=== PATIENT | female | born 1935 | race Caucasian/White ===

== ENCOUNTER 2020-06-27 10:04 | Emergency (ER) | payer MEDICARE, BC ==
[~2020-06-27] VITALS: Ht 154 cm; Wt 90.0 kg
[2020-06-27] MEDS ORDERED: DIAZEPAM 5 MG (VALIUM) TABLET PO ONE (10:15)
[2020-06-27] MEDS ORDERED: ONDANSETRON 4 MG/2 ML (SDV) Z0FRAN IVP ONE (10:15)
[2020-06-27] MEDS ORDERED: NS IV 1000 ML 1,000 ML IV SCH (10:15)
[2020-06-27] MEDS ORDERED: MECLIZINE 25 MG (ANTIVERT) TAB PO ONE (10:15)
[2020-06-27 10:28] LABS: BACTERIA,URINE FEW /HPF; BILIRUBIN,URINE NEGATIVE (NEGATIVE); CLARITY,URINE CLEAR; COLOR,URINE YELLOW; GLUCOSE, URINE (UA) 3+ (NEGATIVE); KETONES,URINE NEGATIVE (NEGATIVE); LEUKOCYTE ESTERASE ,URINE 1+ (NEGATIVE); NITRITE,URINE NEGATIVE (NEGATIVE); PH,URINE 7.5 (5-9); PROTEIN,URINE 3+ (NEGATIVE); SQUAMOUS EPITHELIAL CELL,UR 0-2 /HPF; WBC,URINE 25-50 /HPF
[2020-06-27 10:29] LABS: BASOPHILS % (AUTO) 1 % (0-10); EOSINOPHILS % (AUTO) 3 % (0-10); HEMATOCRIT 37 % (35-52); HEMOGLOBIN 11.3 G/DL (11.5-16.0); LYMPHOCYTES % (AUTO) 27 % (12-44); MEAN CORPUSCULAR HEMOGLOBIN 31 PG (25-34); MEAN CORPUSCULAR HGB CONC 31 G/DL (32-36); MEAN CORPUSCULAR VOLUME 101 FL (80-99); MEAN PLATELET VOLUME 11.7 FL (7.4-10.4); MONOCYTES % (AUTO) 8 % (0-12); NEUTROPHILS % (AUTO) 61 % (42-75); PLATELET COUNT 310 10^3/uL (130-400); WHITE BLOOD COUNT 9.9 10^3/uL (4.3-11.0)
[2020-06-27 10:30] LABS: BASOPHILS # (AUTO) 0.1 10^3/uL (0.0-0.1); EOSINOPHILS # (AUTO) 0.3 10^3/uL (0.0-0.3); LYMPHOCYTES # (AUTO) 2.7 X 10^3 (1.0-4.0); MONOCYTES # (AUTO) 0.8 X 10^3 (0.0-1.0)
--- NOTE | 2020-06-27 10:30 | NUR ---
FLUIDS CONTINUED FROM EMS.
[2020-06-27 10:36] LABS: PROTHROMBIN TIME PATIENT 13.4 SEC (12.2-14.7)
[2020-06-27 10:47] LABS: BUN/CREATININE RATIO 18; CARBON DIOXIDE 23 MMOL/L (21-32); CHLORIDE 103 MMOL/L (98-107); CREATININE SERUM 1.19 MG/DL (0.60-1.30); GFR ESTIMATED 43; GLUCOSE 233 MG/DL (70-105); POTASSIUM 5.3 MMOL/L (3.6-5.0); SODIUM 137 MMOL/L (135-145)
[2020-06-27 10:48] LABS: ALANINE AMINOTRANSFERASE 15 U/L (0-55); ALBUMIN 4.2 GM/DL (3.2-4.5); ALKALINE PHOSPHATASE 85 U/L (40-136); BILIRUBIN,TOTAL 0.8 MG/DL (0.1-1.0); CALCIUM 9.1 MG/DL (8.5-10.1); TOTAL PROTEIN 7.1 GM/DL (6.4-8.2)
--- NOTE | 2020-06-27 10:52 | Diagnostic Imaging Report ---
PROCEDURE: CT head without contrast. TECHNIQUE: Multiple contiguous axial images were obtained through the brain without the use of intravenous contrast. Auto Exposure Controls were utilized during the CT exam to meet ALARA standards for radiation dose reduction. INDICATION: Vertigo Comparison: None available. FINDINGS: Age-appropriate global atrophy is present. No features of large territorial infarct. Periventricular white matter hypoattenuation most compatible with chronic microvascular ischemic disease. No intracranial hyperdense hemorrhage or space-occupying mass. No hydrocephalus or midline shift. Basilar cisterns remain widely patent. No skull fracture. Paranasal sinuses and mastoid air cells are clear. No middle ear fluid. IMPRESSION: 1. No acute intracranial process. 2. No features of mastoiditis or otitis media. Dictated by: Dictated on workstation # [id number]
--- NOTE | 2020-06-27 10:56 | ED General ---
General Chief Complaint: Dizziness/Syncope Stated Complaint: VERTIGO Nursing Triage Note: HX OF VERTIGO IN THE PAST AND REPROTS FEELING DIZZY AND NAUSEATED THIS AM. Nursing Sepsis Screen: No Definite Risk History of Present Illness Date Seen by Provider: Jun 27, 2020 Time Seen by Provider: 10:25 Initial Comments Patient presenting to emergency department for evaluation of a dizziness sensation that she says started earlier this morning. She says she has nausea with it and did have one episode of nonbloody nonbilious emesis. She describes it as a room spinning sensation that is present if she moves her head however if she stays looking forward she does not have any room spinning sensation. She says she has had this before in the past approximately 3 years ago and was diagnosed with vertigo and says that this feels the same as the prior episode but says she has not had it since that time. She denies any pain fevers chills chest pain shortness of breath or diarrhea. Patient is in no obvious distress with normal vital signs. Allergies and Home Medications Allergies Coded Allergies: No Known Drug Allergies (Unverified , 06/27/20) Patient Home Medication List Home Medication List Reviewed: Yes Review of Systems Review of Systems Constitutional: dizziness EENTM: no symptoms reported Respiratory: no symptoms reported Cardiovascular: no symptoms reported Gastrointestinal: nausea, vomiting Genitourinary: no symptoms reported Musculoskeletal: no symptoms reported Skin: no symptoms reported Psychiatric/Neurological: No Symptoms Reported All Other Systems Reviewed Negative Unless Noted: Yes Past Qbmokxw-Fldwoh-Mtdpbp Hx Patient Social History Alcohol Use: Denies Use Recreational Drug Use: No Smoking Status: Never a Smoker 2nd Hand Smoke Exposure: No Recent Foreign Travel: No Contact w/Someone Who Travel: No Recent Infectious Disease Expo: No Recent Hopitalizations: No Physical Abuse: No Sexual Abuse: No Mistreated: No Fear: No Seasonal Allergies Seasonal Allergies: No Past Medical History Surgeries: Yes Respiratory: No Cardiac: Yes Atrial Fibrillation, Coronary Artery Disease, High Cholesterol, Hypertension Neurological: No Genitourinary: Yes (OVERACTIVE BLADDER) Gastroesophageal Reflux Musculoskeletal: No Endocrine: Yes Hypothyroidsim, Diabetes, Non-Insulin dep HEENT: No Cancer: No Psychosocial: No Integumentary: No Blood Disorders: Yes (ANEMIC) Physical Exam Vital Signs Vital Signs - First Documented 06/27/20 10:23 Temp 36.0 Pulse 68 Resp 18 B/P (MAP) 158/62 (94) Pulse Ox 97 O2 Delivery Room Air Capillary Refill : Less Than 3 Seconds Height, Weight, BMI Height: '" Weight: lbs. oz. kg; 37.00 BMI Method: General Appearance: No Apparent Distress, WD/WN HEENT: PERRL/EOMI, Other (horizontal nystagmus on leftward gaze) Neck: Supple Respiratory: Normal Breath Sounds, No Respiratory Distress Cardiovascular: Regular Rate, Rhythm Gastrointestinal: Non Tender, Soft Back: Normal Inspection Extremity: Normal Capillary Refill Neurologic/Psychiatric: Alert, Oriented x3, No Motor/Sensory Deficits, slip presser II- XII Norm as Tested, Other (Normal finger to nose and heel to prieto) Skin: Warm/Dry Progress/Results/Core Measures Suspected Sepsis Recent Fever Within 48 Hours: No Infection Criteria Present: None New/Unexplained Altered Menta: No Sepsis Screen: No Definite Risk SIRS Temperature: Pulse: 68 Respiratory Rate: 18 Laboratory Tests 06/27/20 10:10: White Blood Count 9.9 Blood Pressure 158 /62 Mean: 94 Laboratory Tests 06/27/20 10:10: Creatinine 1.19, INR Comment 1.0, Platelet Count 310, Total Bilirubin 0.8 Results/Orders Lab Results Laboratory Tests Test 06/27/20 10:10 Range/Units White Blood Count 9.9 4.3-11.0 10^3/uL Red Blood Count 3.65 L 4.35-5.85 10^6/uL Hemoglobin 11.3 L 11.5-16.0 G/DL Hematocrit 37 35-52 % Mean Corpuscular Volume 101 H 80-99 FL Mean Corpuscular Hemoglobin 31 25-34 PG Mean Corpuscular Hemoglobin Concent 31 L 32-36 G/DL Red Cell Distribution Width 15.4 H 10.0-14.5 % Platelet Count 310 130-400 10^3/uL Mean Platelet Volume 11.7 H 7.4-10.4 FL Immature Granulocyte % (Auto) 1 % Neutrophils (%) (Auto) 61 42-75 % Lymphocytes (%) (Auto) 27 12-44 % Monocytes (%) (Auto) 8 0-12 % Eosinophils (%) (Auto) 3 0-10 % Basophils (%) (Auto) 1 0-10 % Neutrophils # (Auto) 6.0 1.8-7.8 X 10^3 Lymphocytes # (Auto) 2.7 1.0-4.0 X 10^3 Monocytes # (Auto) 0.8 0.0-1.0 X 10^3 Eosinophils # (Auto) 0.3 0.0-0.3 10^3/uL Basophils # (Auto) 0.1 0.0-0.1 10^3/uL Immature Granulocyte # (Auto) 0.1 0.0-0.1 10^3/uL Prothrombin Time 13.4 12.2-14.7 SEC INR Comment 1.0 0.8-1.4 Activated Partial Thromboplast Time 27 24-35 SEC Urine Color YELLOW Urine Clarity CLEAR Urine pH 7.5 5-9 Urine Specific [place] 1.020 1.016-1.022 Urine Protein 3+ H NEGATIVE Urine Glucose (UA) 3+ H NEGATIVE Urine Ketones NEGATIVE NEGATIVE Urine Nitrite NEGATIVE NEGATIVE Urine Bilirubin NEGATIVE NEGATIVE Urine Urobilinogen 0.2 < = 1.0 MG/DL Urine Leukocyte Esterase 1+ H NEGATIVE Urine RBC (Auto) NEGATIVE NEGATIVE Urine RBC NONE /HPF Urine WBC 25-50 H /HPF Urine Squamous Epithelial Cells 0-2 /HPF Urine Crystals NONE /LPF Urine Bacteria FEW H /HPF Urine Casts NONE /LPF Urine Mucus NEGATIVE /LPF Urine Culture Indicated YES Sodium Level 137 135-145 MMOL/L Potassium Level 5.3 H 3.6-5.0 MMOL/L Chloride Level 103 98-107 MMOL/L Carbon Dioxide Level 23 21-32 MMOL/L Anion Gap 11 5-14 MMOL/L Blood Urea Nitrogen 21 H 7-18 MG/DL Creatinine 1.19 0.60-1.30 MG/DL Estimat Glomerular Filtration Rate 43 BUN/Creatinine Ratio 18 Glucose Level 233 H 70-105 MG/DL Calcium Level 9.1 8.5-10.1 MG/DL Corrected Calcium 8.9 8.5-10.1 MG/DL Total Bilirubin 0.8 0.1-1.0 MG/DL Aspartate Amino Transf (AST/SGOT) 19 5-34 U/L Alanine Aminotransferase (ALT/SGPT) 15 0-55 U/L Alkaline Phosphatase 85 40-136 U/L Troponin I < 0.30 <0.30 NG/ML Total Protein 7.1 6.4-8.2 GM/DL Albumin 4.2 3.2-4.5 GM/DL My Orders Orders - SHDA BELL DO Iv/Invasive Line Insertion .IV start (06/27/20 10:12) Ct Head Wo (06/27/20 10:12) Cbc With Automated Diff (06/27/20 10:12) Comprehensive Metabolic Panel (06/27/20 10:12) Ua Culture If Indicated (06/27/20 10:12) Troponin I Fs (06/27/20 10:12) Partial Thromboplastin Time (06/27/20 10:12) Protime With Inr (06/27/20 10:12) Ekg Tracing (06/27/20 10:12) Ondansetron Injection (Zofran Injectio (06/27/20 10:15) Ns Iv 1000 Ml (Sodium Chloride 0.9%) (06/27/20 10:15) Diazepam Tablet (Valium Tablet) (06/27/20 10:15) Meclizine Tablet (Antivert Tablet) (06/27/20 10:15) Urine Culture (06/27/20 10:10) Promethazine Injection (Phenergan Injec (06/27/20 11:30) Diphenhydramine Injection (Benadryl Inje (06/27/20 11:30) Ceftriaxone For Iv Use (Rocephin For I (06/27/20 11:30) Medications Given in ED Current Medications Medications Dose Ordered Sig/Nicole Route Start Time Stop Time Status Last Admin Dose Admin Ceftriaxone Sodium 1000 mg/ Sterile Water 10 ml @ 200 mls/hr ONCE ONCE IV 06/27/20 11:30 06/27/20 11:32 DC 06/27/20 11:30 200 MLS/HR Diazepam 5 mg ONCE ONCE PO 06/27/20 10:15 06/27/20 10:16 DC 06/27/20 10:19 5 MG Diphenhydramine HCl 25 mg ONCE ONCE IVP 06/27/20 11:30 06/27/20 11:31 DC 06/27/20 11:29 25 MG Meclizine HCl 25 mg ONCE ONCE PO 06/27/20 10:15 06/27/20 10:16 DC 06/27/20 10:19 25 MG Ondansetron HCl 4 mg ONCE ONCE IVP 06/27/20 10:15 06/27/20 10:16 DC 06/27/20 10:18 4 MG Promethazine HCl 12.5 mg ONCE ONCE IVP 06/27/20 11:30 06/27/20 11:31 DC 06/27/20 11:30 12.5 MG Vital Signs/I&O 06/27/20 06/27/20 10:23 12:10 Temp 36.0 36.0 Pulse 68 64 Resp 18 16 B/P (MAP) 158/62 (94) 128/76 Pulse Ox 97 100 O2 Delivery Room Air Room Air Capillary Refill : Less Than 3 Seconds Blood Pressure Mean: 94 Progress Note : Progress Note Patient has symptoms most consistent with a peripheral vertigo. I will check labs and head CT treat symptoms with meclizine and Valium and Zofran and reassess. Patient did not feel much better after initial treatment and she does have some abnormal workup and she has trigeminy and I have no old EKG to compare to but she is on a beta clari. I told her that if she is not feeling better and that she may require admission to the hospital for further observation and treatment she said she did not want to be in the hospital. I told I would try additional medications and see if this makes her feel better so I gave her Rocephin for UTI in addition to Phenergan and Benadryl for continued nausea and vertigo. On reassessment patient says that her nausea is gone and her vertigo is almost gone and that she was able to ambulate to the bedside commode and she feels stable and feels couple going home. She says that she lives by herself but that she has several older people in her apartment complex that live close to her and the check on her frequently. I told her if she does not want to be admitted to the hospital we will treat her supportively as an outpatient with when necessary Zofran and meclizine for her symptoms and I will prescribe her Keflex for UTI and I told her follow with her primary care provider within 2-3 days and to come back to the emergency Department sooner with any new worsening pain vomiting neurologic changes with or general concerns. Patient aware and agreeable with plan and verbalized understanding of the above instructions. Departure Impression Primary Impression: Vertigo Additional Impressions: Nausea & vomiting Ventricular trigeminy UTI (urinary tract infection) Disposition: 01 HOME, SELF-CARE Condition: Stable Departure-Patient Inst. Patient Instructions: Vertigo (a Type of Dizziness) (DC) Scripts Cephalexin (Keflex) 500 Mg Capsule 500 MG PO TID, #15 CAP Prov: SHAD BELL DO 06/27/20 Ondansetron (Ondansetron Odt) 4 Mg Tab.rapdis 4 MG PO Q6H PRN for NAUSEA/VOMITING-1ST LINE, #14 TAB Prov: SHAD BELL DO 06/27/20 Meclizine HCl (Meclizine HCl) 25 Mg Tablet 25 MG PO TID PRN for vertigo, #14 TAB Prov: SHAD BELL DO 06/27/20 SHAD BELL DO Jun 27, 2020 10:56
[2020-06-27] MEDS ORDERED: cefTRIAXone FOR IV USE 1,000 MG in WATER (STERILE) FOR INJECTION 10 ML IV ONE (11:30)
[2020-06-27] MEDS ORDERED: PROMETHAZINE INJ 25 MG/ML (PHENERGAN) AMP IVP ONE (11:30)
[2020-06-27] MEDS ORDERED: diphenhydrAMINE 50 MG/ML INJ (BENADRYL) IVP ONE (11:30)
[2020-06-27 12:10] VITALS: BP 128/76
[2020-06-27] MEDS ORDERED: ONDA4TAB11 PO (12:21)
[2020-06-27] MEDS ORDERED: CEPH-507 PO (12:21)
[2020-06-27] MEDS ORDERED: MECL-149 PO (12:21)
== END 2020-06-27 12:35 | disposition home or self-care (01) ==
LOC: EDUNIT# 10:04 → ER FS 10:05
DX: R42 Dizziness and giddiness (principal); R11.2 Nausea with vomiting, unspecified; R00.8 Other abnormalities of heart beat; N39.0 Urinary tract infection, site not specified
CPT/HCPCS: 36415; 70450; 80053; 81000; 84484; 85025; 85610; 85730; 87077; 87088; 93005

== ENCOUNTER 2020-11-17 19:14 | Emergency (ER) | payer BC, MEDICARE ==
[~2020-11-17] VITALS: Ht 149.9 cm; Wt 73.2 kg
[~2020-11-17 19:14] MED LIST: CEPH-507 PO; MECL-149 PO; ONDA4TAB11 PO
--- NOTE | 2020-11-17 19:37 | ED General ---
General Chief Complaint: General Problems/Pain Stated Complaint: ON MEDICAL ADVISE History of Present Illness Date Seen by Provider: Nov 17, 2020 Time Seen by Provider: 19:30 Initial Comments Sent to ER for high potassium (6.8). Drawn today in and she received a call from her doctor advising her to go to the nearest ER. She feels fine, no complaints. Allergies and Home Medications Allergies Coded Allergies: No Known Drug Allergies (Unverified , 06/27/20) Home Medications Cephalexin 500 Mg Capsule, 500 MG PO TID Prescribed by: SHAD BLEL on 06/27/20 1221 Meclizine HCl 25 Mg Tablet, 25 MG PO TID PRN for vertigo Prescribed by: SHAD BELL on 06/27/20 1221 Ondansetron 4 Mg Tab.rapdis, 4 MG PO Q6H PRN for NAUSEA/VOMITING-1ST LINE Prescribed by: SHAD BELL on 06/27/20 1221 Patient Home Medication List Home Medication List Reviewed: Yes Review of Systems Review of Systems Constitutional: no symptoms reported Cardiovascular: no symptoms reported Gastrointestinal: no symptoms reported Past Bltbqss-Wycbkj-Djcdfr Hx Past Med/Social Hx: Reviewed Nursing Past Med/Soc Hx Patient Social History 2nd Hand Smoke Exposure: No Recent Hopitalizations: No Seasonal Allergies Seasonal Allergies: No Past Medical History Surgeries: Yes Respiratory: No Cardiac: Yes Atrial Fibrillation, Coronary Artery Disease, High Cholesterol, Hypertension Neurological: No Genitourinary: Yes (OVERACTIVE BLADDER) Gastroesophageal Reflux Musculoskeletal: No Endocrine: Yes Hypothyroidsim, Diabetes, Non-Insulin dep HEENT: No Cancer: No Psychosocial: No Integumentary: No Blood Disorders: Yes (ANEMIC) Physical Exam Vital Signs Vital Signs - First Documented 11/17/20 19:31 Temp 36.6 Pulse 66 Resp 16 B/P (MAP) 154/47 (82) O2 Delivery Room Air Capillary Refill : Height, Weight, BMI Height: '" Weight: lbs. oz. kg; 37.00 BMI Method: General Appearance: No Apparent Distress, WD/WN Respiratory: Chest Non Tender, Lungs Clear, Normal Breath Sounds, No Accessory Muscle Use, No Respiratory Distress Cardiovascular: Regular Rate, Rhythm, No Edema, No Gallop, No JVD, No Murmur, Normal Peripheral Pulses Gastrointestinal: Normal Bowel Sounds, No Organomegaly, No Pulsatile Mass, Non Tender, Soft Neurologic/Psychiatric: Alert, Oriented x3 Progress/Results/Core Measures Suspected Sepsis SIRS Temperature: Pulse: Respiratory Rate: Laboratory Tests 11/17/20 19:53: White Blood Count 7.9 Blood Pressure / Mean: Laboratory Tests 11/17/20 19:53: Creatinine 1.76H, Platelet Count 301 Results/Orders Lab Results Laboratory Tests Test 11/17/20 19:53 Range/Units White Blood Count 7.9 4.3-11.0 10^3/uL Red Blood Count 3.59 L 4.35-5.85 10^6/uL Hemoglobin 11.0 L 11.5-16.0 G/DL Hematocrit 35 35-52 % Mean Corpuscular Volume 96 80-99 FL Mean Corpuscular Hemoglobin 31 25-34 PG Mean Corpuscular Hemoglobin Concent 32 32-36 G/DL Red Cell Distribution Width 15.0 H 10.0-14.5 % Platelet Count 301 130-400 10^3/uL Mean Platelet Volume 11.5 H 7.4-10.4 FL Immature Granulocyte % (Auto) 0 % Neutrophils (%) (Auto) 53 42-75 % Lymphocytes (%) (Auto) 33 12-44 % Monocytes (%) (Auto) 9 0-12 % Eosinophils (%) (Auto) 4 0-10 % Basophils (%) (Auto) 1 0-10 % Neutrophils # (Auto) 4.2 1.8-7.8 X 10^3 Lymphocytes # (Auto) 2.6 1.0-4.0 X 10^3 Monocytes # (Auto) 0.7 0.0-1.0 X 10^3 Eosinophils # (Auto) 0.3 0.0-0.3 10^3/uL Basophils # (Auto) 0.1 0.0-0.1 10^3/uL Immature Granulocyte # (Auto) 0.0 0.0-0.1 10^3/uL Sodium Level 135 135-145 MMOL/L Potassium Level 5.7 H 3.6-5.0 MMOL/L Chloride Level 103 98-107 MMOL/L Carbon Dioxide Level 21 21-32 MMOL/L Anion Gap 11 5-14 MMOL/L Blood Urea Nitrogen 35 H 7-18 MG/DL Creatinine 1.76 H 0.60-1.30 MG/DL Estimat Glomerular Filtration Rate 27 BUN/Creatinine Ratio 20 Glucose Level 123 H 70-105 MG/DL Calcium Level 9.5 8.5-10.1 MG/DL My Orders Orders - SHELDON ATKINS DO Ed Iv/Invasive Line Start (11/17/20 19:35) Ekg Tracing (11/17/20 19:35) Cbc With Automated Diff (11/17/20 19:35) Basic Metabolic Panel (11/17/20 19:35) Urinalysis (11/17/20 19:35) Vital Signs/I&O 11/17/20 19:31 Temp 36.6 Pulse 66 Resp 16 B/P (MAP) 154/47 (82) O2 Delivery Room Air Capillary Refill : Progress Note : Progress Note Patient well-appearing, asymptomatic, normal vital signs, normal EKG. Labs show ing a potassium of 5.7 (significantly better than the 6.8 she was reported to have earlier today). Patient given handout on hyperkalemia and advised to avoid foods that are high in potassium for the next several days. Advised to call her doctor/PCP tomorrow and to have repeated blood work in a few days as well. Patient agrees and expresses understanding. ECG Initial ECG Impression Date: Nov 17, 2020 Initial ECG Impression Time: 19:40 Initial ECG Rate: 65 Initial ECG Rhythm: Normal Sinus Initial ECG Impression: Normal Initial ECG Comparisson: No Previous ECG Available Departure Impression Primary Impression: Hyperkalemia Additional Impression: Renal insufficiency Disposition: 01 HOME, SELF-CARE Condition: Stable Departure-Patient Inst. Decision time for Depature: 20:34 Referrals: NO,LOCAL PHYSICIAN (PCP/Family) Primary Care Physician Patient Instructions: Hyperkalemia (DC) Add. Discharge Instructions: You have a MILD elevation of your potassium. For now avoid eating the foods listed on your instructions to prevent further elevation of your potassium. Call your doctor tomorrow morning to discuss tonight's lab results. Your potassium level was 5.7 tonight in the ER. ( reported to be 6.8 from lab earlier today) All discharge instructions reviewed with patient and/or family. Voiced understanding. SHELDON ATKINS DO Nov 17, 2020 19:36
[2020-11-17 20:02] LABS: BASOPHILS % (AUTO) 1 % (0-10); EOSINOPHILS % (AUTO) 4 % (0-10); HEMATOCRIT 35 % (35-52); LYMPHOCYTES % (AUTO) 33 % (12-44); MEAN CORPUSCULAR HEMOGLOBIN 31 PG (25-34); MEAN CORPUSCULAR HGB CONC 32 G/DL (32-36); MEAN CORPUSCULAR VOLUME 96 FL (80-99); MEAN PLATELET VOLUME 11.5 FL (7.4-10.4); MONOCYTES % (AUTO) 9 % (0-12); NEUTROPHILS % (AUTO) 53 % (42-75); PLATELET COUNT 301 10^3/uL (130-400); WHITE BLOOD COUNT 7.9 10^3/uL (4.3-11.0)
[2020-11-17 20:03] LABS: BASOPHILS # (AUTO) 0.1 10^3/uL (0.0-0.1); EOSINOPHILS # (AUTO) 0.3 10^3/uL (0.0-0.3); LYMPHOCYTES # (AUTO) 2.6 X 10^3 (1.0-4.0); MONOCYTES # (AUTO) 0.7 X 10^3 (0.0-1.0); NEUTROPHILS # (AUTO) 4.2 X 10^3 (1.8-7.8)
[2020-11-17 20:25] LABS: CREATININE SERUM 1.76 MG/DL (0.60-1.30)
[2020-11-17 20:26] LABS: CALCIUM 9.5 MG/DL (8.5-10.1)
[2020-11-17 20:27] LABS: POTASSIUM 5.7 MMOL/L (3.6-5.0)
[2020-11-17 20:50] VITALS: BP 125/40
== END 2020-11-17 20:50 | disposition home or self-care (01) ==
LOC: EDUNIT# 19:14 → ER FS 19:17
DX: E87.5 Hyperkalemia (principal); N28.9 Disorder of kidney and ureter, unspecified; E11.9 Type 2 diabetes mellitus without complications; I10 Essential (primary) hypertension
CPT/HCPCS: 36415; 80048; 85025; 93005

== ENCOUNTER → 2020-11-19 | Outpatient (CLI) | payer BC, MEDICARE ==
[2020-11-19 11:08] LABS: CALCIUM 9.8 MG/DL (8.5-10.1); CREATININE SERUM 1.53 MG/DL (0.60-1.30); POTASSIUM 6.1 MMOL/L (3.6-5.0)
== END ==
LOC: LAB FS 10:18
DX: E87.5 Hyperkalemia (principal)
CPT/HCPCS: 36415; 80048

== ENCOUNTER 2023-05-10 14:40 | Inpatient (IN) | payer MEDICARE ==
[~2023-05-10] VITALS: Ht 149.9 cm; Wt 70.6 kg
[~2023-05-10 14:40] MED LIST changes: +CYCL5TAB PO; -MECL-149 PO; +MECL-291 PO
--- NOTE | 2023-05-10 14:50 | ED General ---
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 Patient lives at home alone and is normally able to take care of herself. Patient has been feeling unwell for the past few days, and today she was unable to stand or walk on her own without feeling extremely shaky and with generalized weakness. Patient complains of shortness of breath, mild intermittent cough, dysuria and polyuria as well. Denies fever and chills, abdominal pain, diarrhea, palpitations, headache, dizziness. No known sick contacts. Allergies and Home Medications Allergies Coded Allergies: No Known Drug Allergies (Unverified , 06/27/20) Patient Home Medication List Home Medication List Reviewed: Yes Cephalexin (Keflex) 500 Mg Capsule, 500 MG PO TID Prescribed by: SHAD BELL on 06/27/20 1221 Cyclobenzaprine HCl (Cyclobenzaprine HCl) 5 Mg Tablet, 5 MG PO TID PRN for muscle pain Prescribed by: Kortney deng on 02/10/23 2221 Meclizine HCl (Meclizine HCl) 25 Mg Tablet, 25 MG PO TID PRN for vertigo Prescribed by: SHAD BELL on 06/27/20 1221 Ondansetron (Ondansetron Odt) 4 Mg Tab.rapdis, 4 MG PO Q6H PRN for NAUSEA/VOMITING-1ST LINE Prescribed by: SHAD BELL on 06/27/20 1221 Review of Systems Review of Systems Constitutional: see HPI, malaise EENTM: no symptoms reported Respiratory: see HPI, cough, short of breath Cardiovascular: no symptoms reported Gastrointestinal: no symptoms reported Genitourinary: dysuria Musculoskeletal: no symptoms reported Skin: no symptoms reported Psychiatric/Neurological: No Symptoms Reported Hematologic/Lymphatic: No Symptoms Reported Past Oprexkd-Kmtfik-Jkemgs Hx Seasonal Allergies Seasonal Allergies: No Past Medical History Surgeries: Yes (BILAT KNEE REPLACEMENT) Adenoidectomy, Appendectomy, Gallbladder, Tonsillectomy Respiratory: No Cardiac: Yes Atrial Fibrillation, Coronary Artery Disease, High Cholesterol, Hypertension Neurological: No Genitourinary: Yes (OVERACTIVE BLADDER) Gastroesophageal Reflux Musculoskeletal: No Endocrine: Yes Hypothyroidsim, Diabetes, Non-Insulin dep HEENT: No Cancer: No Psychosocial: No Integumentary: No Blood Disorders: Yes (ANEMIC) Physical Exam Vital Signs Vital Signs - First Documented 05/10/23 15:20 Temp 38.0 Pulse 96 Resp 22 B/P (MAP) 48/ Pulse Ox 94 O2 Delivery Room Air O2 Flow Rate 141.00 Capillary Refill : Height, Weight, BMI Height: '" Weight: lbs. oz. kg; 27.00 BMI Method: General Appearance: Mild Distress HEENT: PERRL/EOMI, Normal ENT Inspection Neck: Full Range of Motion, Normal Inspection, Non Tender Respiratory: Chest Non Tender, Rales, Rhonci Cardiovascular: Regular Rate, Rhythm, Systolic Murmur, Other (Mild bilateral pitting lower extremity edema) Gastrointestinal: Normal Bowel Sounds, Non Tender, Soft Back: Normal Inspection Extremity: Normal Range of Motion Neurologic/Psychiatric: Alert, Oriented x3 Skin: Normal Color Focused Exam Lactate Level 05/10/23 15:13: Lactic Acid Level 1.32 Lactic Acid Level Laboratory Tests Test 05/10/23 15:13 Lactic Acid Level 1.32 MMOL/L (0.50-2.00) Progress/Results/Core Measures Suspected Sepsis SIRS Temperature: Pulse: Respiratory Rate: Laboratory Tests 05/10/23 14:40: White Blood Count 10.5 Blood Pressure / Mean: 05/10/23 15:13: Lactic Acid Level 1.32 Laboratory Tests 05/10/23 14:40: Creatinine 0.93, INR Comment 1.1, Platelet Count 188, Total Bilirubin 1.2H Results/Orders Lab Results Laboratory Tests Test 05/10/23 14:40 05/10/23 14:50 05/10/23 15:13 05/10/23 16:20 Range/Units White Blood Count 10.5 4.3-11.0 10^3/uL Red Blood Count 2.49 L 3.80-5.11 10^6/uL Hemoglobin 7.9 L 11.5-16.0 g/dL Hematocrit 24 L 35-52 % Mean Corpuscular Volume 95 80-99 fL Mean Corpuscular Hemoglobin 32 25-34 pg Mean Corpuscular Hemoglobin Concent 33 32-36 g/dL Red Cell Distribution Width 25.7 H 10.0-14.5 % Platelet Count 188 130-400 10^3/uL Mean Platelet Volume 10.4 9.0-12.2 fL Immature Granulocyte % (Auto) 2 % Neutrophils (%) (Auto) 40 L 42-75 % Lymphocytes (%) (Auto) 17 12-44 % Monocytes (%) (Auto) 39 H 0-12 % Eosinophils (%) (Auto) 1 0-10 % Basophils (%) (Auto) 1 0-10 % Neutrophils # (Auto) 4.2 1.8-7.8 10^3/uL Lymphocytes # (Auto) 1.8 1.0-4.0 10^3/uL Monocytes # (Auto) 4.1 H 0.0-1.0 10^3/uL Eosinophils # (Auto) 0.1 0.0-0.3 10^3/uL Basophils # (Auto) 0.1 0.0-0.1 10^3/uL Immature Granulocyte # (Auto) 0.2 H 0.0-0.1 10^3/uL Neutrophils % (Manual) 21 % Lymphocytes % (Manual) 29 % Monocytes % (Manual) 18 % Eosinophils % (Manual) 1 % Basophils % (Manual) 0 % Metamyelocytes % 3 % Myelocytes % 1 % Band Neutrophils 27 % Nucleated Red Blood Cells 4 Percent Immature Platelet Fraction 6.1 0.0-7.6 % Polychromasia SLIGHT Hypochromasia SLIGHT Poikilocytosis SLIGHT Basophilic Stippling SLIGHT Anisocytosis MODERATE Macrocytosis SLIGHT Target Cells SLIGHT Helmet Cells SLIGHT Schistocytes SLIGHT Blood Morphology Comment SEE FOOTNOTE Prothrombin Time 14.5 12.2-14.7 SEC INR Comment 1.1 0.8-1.4 Activated Partial Thromboplast Time 30 24-35 SEC D-Dimer 0.94 H 0.00-0.49 UG/ML Sodium Level 133 L 135-145 MMOL/L Potassium Level 4.8 3.6-5.0 MMOL/L Chloride Level 98 98-107 MMOL/L Carbon Dioxide Level 22 21-32 MMOL/L Anion Gap 13 5-14 MMOL/L Blood Urea Nitrogen 20 H 7-18 MG/DL Creatinine 0.93 0.60-1.30 MG/DL Estimat Glomerular Filtration Rate 59 BUN/Creatinine Ratio 22 Glucose Level 165 H 70-105 MG/DL Calcium Level 9.1 8.5-10.1 MG/DL Corrected Calcium 9.3 8.5-10.1 MG/DL Magnesium Level 1.9 1.6-2.4 MG/DL Total Bilirubin 1.2 H 0.1-1.0 MG/DL Aspartate Amino Transf (AST/SGOT) 25 5-34 U/L Alanine Aminotransferase (ALT/SGPT) 16 0-55 U/L Alkaline Phosphatase 121 40-136 U/L Troponin I < 0.30 <0.30 NG/ML Pro-B-Type Natriuretic Peptide 2212.0 H <450.0 PG/ML Total Protein 8.1 6.4-8.2 GM/DL Albumin 3.7 3.2-4.5 GM/DL Influenza Type A (RT-PCR) Not Detected Not Detecte Influenza Type B (RT-PCR) Not Detected Not Detecte SARS-CoV-2 RNA (RT-PCR) Not Detected Not Detecte Lactic Acid Level 1.32 0.50-2.00 MMOL/L Urine Color YELLOW Urine Clarity SL CLOUDY Urine pH 6.0 5-9 Urine Specific Brilliant 1.010 L 1.016-1.022 Urine Protein 1+ H NEGATIVE Urine Glucose (UA) NEGATIVE NEGATIVE Urine Ketones NEGATIVE NEGATIVE Urine Nitrite NEGATIVE NEGATIVE Urine Bilirubin NEGATIVE NEGATIVE Urine Urobilinogen 0.2 < = 1.0 MG/DL Urine Leukocyte Esterase 1+ H NEGATIVE Urine RBC (Auto) TRACE-I H NEGATIVE Urine RBC 0-2 /HPF Urine WBC 25-50 H /HPF Urine Squamous Epithelial Cells 2-5 /HPF Urine Crystals NONE /LPF Urine Bacteria FEW H /HPF Urine Casts NONE /LPF Urine Mucus NEGATIVE /LPF Urine Culture Indicated YES My Orders Orders - ALBERTO STAFFORD MD Chest 1 View Ap/Pa Only (05/10/23 14:45) Influenza A And B By Pcr (05/10/23 14:46) Covid 19 Inhouse Test (05/10/23 14:46) Cbc And Automated Diff (05/10/23 14:46) Comprehensive Metabolic Panel (05/10/23 14:46) Lactic Acid Analyzer (05/10/23 14:46) Magnesium (05/10/23 14:46) Protime With Inr (05/10/23 14:46) Partial Thromboplastin Time (05/10/23 14:46) Ua Culture If Indicated (05/10/23 14:46) Probnp Fs (05/10/23 14:46) Troponin I Fs (05/10/23 14:46) Blood Culture (05/10/23 14:48) Ekg Tracing (05/10/23 14:49) Continuous Ekg Monitoring (05/10/23 14:49) Manual Differential (05/10/23 14:40) Fibrin Degradation Products (05/10/23 15:14) Ceftriaxone Iv/Im (Ceftriaxone Iv/Im) (05/10/23 16:15) Azithromycin Injection (Azithromycin Inj (05/10/23 16:15) Furosemide Injection (Furosemide Injec (05/10/23 16:08) Urine Culture (05/10/23 16:20) Ct Angio Chest W (R/O Pe) (05/10/23 17:06) Ed Admission (Communication) (05/10/23 17:19) Iohexol Injection (Omnipaque 350 Mg/Ml 1 (05/10/23 17:30) Received Contrast (Hold Metformin- Contr (05/10/23 17:30) Ns (Ivpb) 100 Ml (Sodium Chloride 0.9% 1 (05/10/23 17:30) Medications Given in ED Current Medications Medications Dose Ordered Sig/Nicole Route Start Time Stop Time Status Last Admin Dose Admin Azithromycin 500 mg/Sodium Chloride 255 ml @ 250 mls/hr ONCE ONCE IV 05/10/23 16:15 05/10/23 17:16 DC 05/10/23 16:37 250 MLS/HR Ceftriaxone Sodium 1000 mg/ Sodium Chloride 50 ml @ 100 mls/hr ONCE ONCE IV 05/10/23 16:15 05/10/23 16:44 DC 05/10/23 16:30 100 MLS/HR Iohexol 100 ml ONCE ONCE IV 05/10/23 17:30 05/10/23 17:31 DC 05/10/23 17:45 80 ML Sodium Chloride 100 ml ONCE ONCE IV 05/10/23 17:30 05/10/23 17:31 DC 05/10/23 17:45 100 ML Vital Signs/I&O 05/10/23 05/10/23 15:20 18:07 Temp 38.0 37.4 Pulse 96 93 Resp 22 20 B/P (MAP) 48/ 154/54 Pulse Ox 94 91 O2 Delivery Room Air Nasal Cannula O2 Flow Rate 141.00 Capillary Refill : Progress Note : Progress Note 1. GENERALIZED WEAKNESS DUE TO LEFT UPPER LOBE PNEUMONIA & ACUTE CYSTITIS WITH HEMATURIA: - CXR: There are left upper lobe infiltrates concerning for pneumonia. - CBC: WBC is normal (10.5) - Blood cultures sent -UA is positive for leukocyte esterase, RBC, WBC, bacteria - Lactic acid level normal - COVID test/ Flu test: negative - Azithro iv & Ceftriaxone 1gm iv STAT in ER - Discussed with Dr Haddad and accepted for admission to step down unit - O2 2L NC,for comfort. Lower O2 sat at 90% likely due to anemia and lung cancer. With 2L O2, O2 sat is 97% to 99% 2. ACUTE CHF EXACERBATION: - BNP is elevated: 2,212 - Lasix 60mg iv STAT 3. ELEVATED D-DIMER: - D-dimer is elevated to 0.94 - Will do CTA chest since pt has lung cancer predisposing her to a hypercoaguable state - CTA CHEST: No CT evidence of pulmonary emboli or acute aortic pathology. Moderate-sized left pleural effusion and minimal right pleural effusion. Patchy areas of airspace disease in the left lung are seen both in the upper lobe and lower lobe, most likely due to pneumonia. There is a sclerotic lesion at T7 with loss of height which may represent a pathologic compression fracture. Consider MRI followup as clinically warranted. 4. 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 - Pt's last blood transfusion was 5 years ago Diagnostic Imaging Diagonstic Imaging: Xray Plain Films/CT/US/NM/MRI: chest Comments [facility] [place] [place] NAME: JAN GUTIERRES [facility] REC#: [id number] PT STATUS: REG ER : 1935 PHYSICIAN: ALBRETO STAFFORD MD ADMIT DATE: 05/10/23/ER FS Draft Date of Exam:05/10/23 CT ANGIO CHEST W (R/O PE) INDICATION: Elevated d-dimer, shortness of breath, and weakness. TECHNIQUE: CTA chest was obtained with IV contrast bolus. Axial slices and sagittal and coronal MIP reconstructions were performed. Dose reduction protocol was used. COMPARISON: There is no prior study for comparison. FINDINGS: The pulmonary parenchymal vessels are well-opacified with no CT evidence of pulmonary emboli. The thoracic aorta shows no evidence of dissection or aneurysm. There are scattered atherosclerotic calcifications of the aorta. There is a Port-A-Cath over the right chest with its catheter tip in the SVC. There are no enlarged mediastinal or hilar nodes. There are no enlarged axillary nodes. There is a minimal right pleural effusion and a moderate-sized left pleural effusion. Lung windows show patchy areas of airspace disease in the left upper lobe superiorly as well as in the left perihilar region and left lower lobe in the perihilar region as well. There is some peribronchial thickening. There is some atelectatic change in the right base. There is a sclerotic lesion with loss of height of T7 which may represent a pathologic compression fracture. Consider followup with MRI as clinically warranted. There is an incidental small hiatal hernia. There is a benign-appearing cyst in the left kidney. IMPRESSION: No CT evidence of pulmonary emboli or acute aortic pathology. Moderate-sized left pleural effusion and minimal right pleural effusion. Patchy areas of airspace disease in the left lung are seen both in the upper lobe and lower lobe, most likely due to pneumonia. There is a sclerotic lesion at T7 with loss of height which may represent a pathologic compression fracture. Consider MRI followup as clinically warranted. Dictated on workstation # [id number] Dict: 05/10/231822 Trans: 05/10/23 183 [id number] Interpreted by: ALBER PEREZ MD Electronically signed by: [facility] [place] [place] NAME: JAN GUTIERRES [facility] REC#: [id number] PT STATUS: REG ER : 1935 PHYSICIAN: ALBERTO STAFFORD MD ADMIT DATE: 05/10/23/ER FS Draft Date of Exam:05/10/23 CHEST 1 VIEW AP/PA ONLY CLINICAL INDICATIONS: Patient with generalized weakness. EXAM: Portable chest x-ray upright view. COMPARISON: None. FINDINGS: There is small to moderate-sized area of patchy consolidation and infiltrate involving the left upper lobe in the left midlung field region. There is elevation of the left hemidiaphragm. There is no pneumothorax. There is cardiomegaly with no significant pulmonary vascular congestion. Infusaport is seen overlying the right chest with tip overlying the expected region of the mid to distal superior vena cava. IMPRESSION: There are left upper lobe infiltrates concerning for pneumonia. Dictated on workstation # [id number] Dict: 05/10/23 1510 Trans: 05/10/23 151 [facility] [id number] Interpreted by: LITA MARINELLI MD Electronically signed by: Departure Communication (Admissions) Time/Spoke to Admitting Phy: 17:[address] Haddad and accepted for admission to step down unit Impression Primary Impression: Generalized weakness Additional Impressions: Left upper lobe pneumonia Acute cystitis with hematuria Acute exacerbation of CHF (congestive heart failure) Chronic disease anemia Elevated d-dimer Disposition: 30 STILL A PATIENT Condition: Stable Admissions Decision to Admit Reason: Admit from ER (General) Decision to Admit/Date: May 10, 2023 Time/Decision to Admit Time: 16:12 Transfer Method of Transfer: EMS Departure-Patient Inst. Referrals: NO,LOCAL PHYSICIAN (PCP/Family) Primary Care Physician ALBERTO STAFFORD MD May 10, 2023 14:50
[2023-05-10 15:05] LABS: BASOPHILS # (AUTO) 0.1 10^3/uL (0.0-0.1); BASOPHILS % (AUTO) 1 % (0-10); EOSINOPHILS # (AUTO) 0.1 10^3/uL (0.0-0.3); EOSINOPHILS % (AUTO) 1 % (0-10); HEMATOCRIT 24 % (35-52); HEMOGLOBIN 7.9 g/dL (11.5-16.0); LYMPHOCYTES # (AUTO) 1.8 10^3/uL (1.0-4.0); LYMPHOCYTES % (AUTO) 17 % (12-44); MEAN CORPUSCULAR HEMOGLOBIN 32 pg (25-34); MEAN CORPUSCULAR HGB CONC 33 g/dL (32-36); MEAN CORPUSCULAR VOLUME 95 fL (80-99); MEAN PLATELET VOLUME 10.4 fL (9.0-12.2); MONOCYTES # (AUTO) 4.1 10^3/uL (0.0-1.0); MONOCYTES % (AUTO) 39 % (0-12); NEUTROPHILS # (AUTO) 4.2 10^3/uL (1.8-7.8); NEUTROPHILS % (AUTO) 40 % (42-75); PLATELET COUNT 188 10^3/uL (130-400); WHITE BLOOD COUNT 10.5 10^3/uL (4.3-11.0)
[2023-05-10 15:08] LABS: INR 1.1 (0.8-1.4); PROTHROMBIN TIME PATIENT 14.5 SEC (12.2-14.7)
--- NOTE | 2023-05-10 15:13 | Diagnostic Imaging Report ---
CLINICAL INDICATIONS: Patient with generalized weakness. EXAM: Portable chest x-ray upright view. COMPARISON: None. FINDINGS: There is small to moderate-sized area of patchy consolidation and infiltrate involving the left upper lobe in the left midlung field region. There is elevation of the left hemidiaphragm. There is no pneumothorax. There is cardiomegaly with no significant pulmonary vascular congestion. Infusaport is seen overlying the right chest with tip overlying the expected region of the mid to distal superior vena cava. IMPRESSION: There are left upper lobe infiltrates concerning for pneumonia. Dictated by: Dictated on workstation # [id number]
[2023-05-10 15:18] LABS: CHLORIDE 98 MMOL/L (98-107); POTASSIUM 4.8 MMOL/L (3.6-5.0); SODIUM 133 MMOL/L (135-145)
[2023-05-10 15:28] LABS: ALANINE AMINOTRANSFERASE 16 U/L (0-55); ALBUMIN 3.7 GM/DL (3.2-4.5); ALKALINE PHOSPHATASE 121 U/L (40-136); BILIRUBIN,TOTAL 1.2 MG/DL (0.1-1.0); BUN/CREATININE RATIO 22; CALCIUM 9.1 MG/DL (8.5-10.1); CARBON DIOXIDE 22 MMOL/L (21-32); CREATININE SERUM 0.93 MG/DL (0.60-1.30); GFR ESTIMATED 59; GLUCOSE 165 MG/DL (70-105); MAGNESIUM 1.9 MG/DL (1.6-2.4); TOTAL PROTEIN 8.1 GM/DL (6.4-8.2)
[2023-05-10 15:41] LABS: BAND NEUTROPHILS 27 %; BASOPHILS % (MANUAL) 0 %; EOSINOPHILS % (MANUAL) 1 %; LYMPHOCYTES % (MANUAL) 29 %; METAMYELOCYTES % 3 %; MONOCYTES % (MANUAL) 18 %; MYELOCYTES % 1 %; NEUTROPHILS % (MANUAL) 21 %
[2023-05-10 15:42] LABS: ANISOCYTOSIS MODERATE; HYPOCHROMASIA SLIGHT; NUCLEATED RED BLOOD CELLS 4; POIKILOCYTOSIS SLIGHT; POLYCHROMASIA SLIGHT; RBC MORPH SEE FOOTNOTE
[2023-05-10 15:43] LABS: HELMET/BITE CELLS SLIGHT; SCHISTOCYTES SLIGHT; TARGET CELLS SLIGHT
[2023-05-10] MEDS ORDERED: FUROSEMIDE INJECTION 40 MG/4 ML VIAL IVP STA (16:08)
[2023-05-10] MEDS ORDERED: cefTRIAXone IV/IM 1,000 MG in NS (IVPB) 50 ML 50 ML IV ONE (16:15)
[2023-05-10] MEDS ORDERED: AZITHROMYCIN INJECTION 500 MG in NS (IVPB) 250 ML 250 ML IV ONE (16:15)
[2023-05-10 16:29] LABS: BILIRUBIN,URINE NEGATIVE (NEGATIVE); CLARITY,URINE SL CLOUDY; COLOR,URINE YELLOW; GLUCOSE, URINE (UA) NEGATIVE (NEGATIVE); KETONES,URINE NEGATIVE (NEGATIVE); LEUKOCYTE ESTERASE ,URINE 1+ (NEGATIVE); NITRITE,URINE NEGATIVE (NEGATIVE); PROTEIN,URINE 1+ (NEGATIVE)
[2023-05-10 16:45] LABS: BACTERIA,URINE FEW /HPF; RBC,URINE 0-2 /HPF; WBC,URINE 25-50 /HPF
[2023-05-10] MEDS ORDERED: HOLD METFORMIN - RECEIVED CONTRAST 20 ML VIAL IV SCH (17:30)
[2023-05-10] MEDS ORDERED: IOHEXOL 350 MG/ML 100 ML (OMNIPAQUE 350) VIAL IV ONE (17:30)
[2023-05-10] MEDS ORDERED: NS 100 ML (IVPB) BAG IV ONE (17:30)
--- NOTE | 2023-05-10 18:34 | Diagnostic Imaging Report ---
INDICATION: Elevated d-dimer, shortness of breath, and weakness. TECHNIQUE: CTA chest was obtained with IV contrast bolus. Axial slices and sagittal and coronal MIP reconstructions were performed. Dose reduction protocol was used. COMPARISON: There is no prior study for comparison. FINDINGS: The pulmonary parenchymal vessels are well-opacified with no CT evidence of pulmonary emboli. The thoracic aorta shows no evidence of dissection or aneurysm. There are scattered atherosclerotic calcifications of the aorta. There is a Port-A-Cath over the right chest with its catheter tip in the SVC. There are no enlarged mediastinal or hilar nodes. There are no enlarged axillary nodes. There is a minimal right pleural effusion and a moderate-sized left pleural effusion. Lung windows show patchy areas of airspace disease in the left upper lobe superiorly as well as in the left perihilar region and left lower lobe in the perihilar region as well. There is some peribronchial thickening. There is some atelectatic change in the right base. There is a sclerotic lesion with loss of height of T7 which may represent a pathologic compression fracture. Consider followup with MRI as clinically warranted. There is an incidental small hiatal hernia. There is a benign-appearing cyst in the left kidney. IMPRESSION: No CT evidence of pulmonary emboli or acute aortic pathology. Moderate-sized left pleural effusion and minimal right pleural effusion. Patchy areas of airspace disease in the left lung are seen both in the upper lobe and lower lobe, most likely due to pneumonia. There is a sclerotic lesion at T7 with loss of height which may represent a pathologic compression fracture. Consider MRI followup as clinically warranted. Dictated by: Dictated on workstation # [id number]
[2023-05-10] MEDS ORDERED: CATHETER FLUSH 10 ML SYR IVP PRN (19:45)
[2023-05-10] MEDS ORDERED: MELATONIN 3 MG TABLET PO PRN (19:45)
[2023-05-10 19:46] VITALS: BP 134/56
[2023-05-10 21:51] VITALS: BP 134/56
[2023-05-10] MEDS: CATHETER FLUSH 10 ML SYR IVP SCH (21:55)
[2023-05-10] MEDS ORDERED: RT-ALBUTEROL SULF 2.5 MG/3 ML PRE-MIX VIAL INH PRN (22:00)
[2023-05-11] VITALS: BP 122/53
[2023-05-11 04:00] VITALS: BP 119/51
[2023-05-11] MEDS ORDERED: FUROSEMIDE INJECTION 40 MG/4 ML VIAL IV SCH (04:00)
[2023-05-11 05:02] LABS: BASOPHILS % (AUTO) 0 % (0-10); EOSINOPHILS # (AUTO) 0.1 10^3/uL (0.0-0.3); EOSINOPHILS % (AUTO) 1 % (0-10); HEMATOCRIT 22 % (35-52); HEMOGLOBIN 7.2 g/dL (11.5-16.0); LYMPHOCYTES # (AUTO) 1.9 10^3/uL (1.0-4.0); LYMPHOCYTES % (AUTO) 22 % (12-44); MEAN CORPUSCULAR HEMOGLOBIN 31 pg (25-34); MEAN CORPUSCULAR HGB CONC 32 g/dL (32-36); MEAN CORPUSCULAR VOLUME 97 fL (80-99); MONOCYTES # (AUTO) 3.4 10^3/uL (0.0-1.0); MONOCYTES % (AUTO) 39 % (0-12); NEUTROPHILS # (AUTO) 3.2 10^3/uL (1.8-7.8); NEUTROPHILS % (AUTO) 37 % (42-75); PLATELET COUNT 150 10^3/uL (130-400); WHITE BLOOD COUNT 8.7 10^3/uL (4.3-11.0)
[2023-05-11 05:16] LABS: POTASSIUM 3.5 MMOL/L (3.6-5.0)
[2023-05-11 05:22] LABS: CREATININE SERUM 1.08 MG/DL (0.60-1.30)
[2023-05-11 06:06] LABS: BAND NEUTROPHILS 14 %; EOSINOPHILS % (MANUAL) 1 %; HYPOCHROMASIA SLIGHT; LYMPHOCYTES % (MANUAL) 25 %; MONOCYTES % (MANUAL) 20 %; NEUTROPHILS % (MANUAL) 37 %; NUCLEATED RED BLOOD CELLS 3; POIKILOCYTOSIS SLIGHT; REACTIVE LYMPHOCYTES 3 %
[2023-05-11 06:07] LABS: ANISOCYTOSIS MODERATE
[2023-05-11] MEDS: CATHETER FLUSH 10 ML SYR IVP SCH ×3 (06:36→22:03)
[2023-05-11 07:58] VITALS: BP 124/52
--- NOTE | 2023-05-11 08:08 | History & Physical-Hospitalist ---
History of Present Illness HPI/Chief Complaint Patient is an 88-year-old female with a past medical history of squamous cell carcinoma of the lung, hypertension, diabetes who presented to the emergency department due to generalized weakness. She lives at home alone and is normally able to manage and keep up with her ADLs but over the past few days she states she was really struggling to do that. She is hardly able to stand on her own or walk without feeling as if she was going to fall. She ultimately summoned EMS to bring her to the emergency department for further evaluation. She was found to have pneumonia and UTI in the emergency department. CTA was done as well to rule out PE and she was found to have a moderate left pleural effusion and pneumonia. This morning she reports feeling little bit better but is still quite weak and overall just generally unwell. Source: patient Date Seen 05/11/23 Time Seen by a Provider: 08:30 Attending Physician No,Local Physician PCP Admitting Physician: Tatiana Haddad MD Attending Physician: Tatiana Haddad MD Referring Physician Date of Admission May 10, 2023 at 19:25 Home Medications & Allergies Home Medications Reviewed patient Home Medication Reconciliation performed by pharmacy medication reconciliations respiratory therapy technician and/or nursing. Patients Allergies have been reviewed. Allergies Allergies Coded Allergies No Known Drug Allergies (Gqjwaqzpzk16/6/20) Past Vlgseyd-Evycwg-Bjqgyo Hx Patient Social History Tobacco Use?: No Smoking Status: Former Smoker Use of E-Cig and/or Vaping dev: No Substance use?: No Alcohol Use?: No Pt feels they are or have been: No Seasonal Allergies Seasonal Allergies: No Current Status status: No status: No Advance Directives: Yes Advance Directive Location: Family to bring in copy Communicates: Verbally Primary Language: [place] Preferred Spoken Language: [place] Is interpretation needed?: No Sensory deficits: Vision impairment Implanted or Applied Medical D: Orthopedic hardware, Port-a-cath, Stents Past Medical History Surgeries: Adenoidectomy, Appendectomy, Gallbladder, Tonsillectomy Atrial Fibrillation, Coronary Artery Disease, High Cholesterol, Hypertension Gastroesophageal Reflux Hypothyroidsim, Diabetes, Non-Insulin dep Blood Disorders: Yes (ANEMIC) Family Medical History Reviewed Nursing Family Hx Review of Systems Constitutional: see HPI Physical Exam Physical Exam Vital Signs Vital Signs - First Documented 05/10/23 15:20 Temp 38.0 Pulse 96 Resp 22 B/P (MAP) 48/ Pulse Ox 94 O2 Delivery Room Air O2 Flow Rate 141.00 Capillary Refill : Height, Weight, BMI Height: '" Weight: lbs. oz. kg; 30.84 BMI Method: General Appearance: No Apparent Distress, WD/WN Respiratory: Lungs Clear, No Respiratory Distress Cardiovascular: Regular Rate, Rhythm, Systolic Murmur Gastrointestinal: Normal Bowel Sounds, Soft Extremity: No Calf Tenderness, No Pedal Edema Neurologic/Psychiatric: Alert, Oriented x3, Normal Mood/Affect Results Results/Procedures Labs Laboratory Tests 05/10/23 14:40 05/11/23 04:45 Patient resulted labs reviewed. Imaging: Reviewed Imaging Report [facility] [place] [place] NAME: JAN GUTIERRES [facility] REC#: [id number] PT STATUS: REG ER : 1935 PHYSICIAN: ALBERTO STAFFORD MD ADMIT DATE: 05/10/23/ER FS Signed Date of Exam:05/10/23 CHEST 1 VIEW AP/PA ONLY CLINICAL INDICATIONS: Patient with generalized weakness. EXAM: Portable chest x-ray upright view. COMPARISON: None. FINDINGS: There is small to moderate-sized area of patchy consolidation and infiltrate involving the left upper lobe in the left midlung field region. There is elevation of the left hemidiaphragm. There is no pneumothorax. There is cardiomegaly with no significant pulmonary vascular congestion. Infusaport is seen overlying the right chest with tip overlying the expected region of the mid to distal superior vena cava. IMPRESSION: There are left upper lobe infiltrates concerning for pneumonia. Dictated by: Dictated on workstation # [id number] Dict: 05/10/23 1510 Trans: 05/10/231919 [facility] [id number] Interpreted by: LITA MARINELLI MD Electronically signed by: LITA MARINELLI MD 05/10/231919 [facility] [place], [place] NAME: JAN GUTIERRES [facility] REC#: [id number] PT STATUS: REG ER : 1935 PHYSICIAN: ALBERTO STAFFORD MD ADMIT DATE: 05/10/23/ER FS Signed Date of Exam:05/10/23 CT ANGIO CHEST W (R/O PE) INDICATION: Elevated d-dimer, shortness of breath, and weakness. TECHNIQUE: CTA chest was obtained with IV contrast bolus. Axial slices and sagittal and coronal MIP reconstructions were performed. Dose reduction protocol was used. COMPARISON: There is no prior study for comparison. FINDINGS: The pulmonary parenchymal vessels are well-opacified with no CT evidence of pulmonary emboli. The thoracic aorta shows no evidence of dissection or aneurysm. There are scattered atherosclerotic calcifications of the aorta. There is a Port-A-Cath over the right chest with its catheter tip in the SVC. There are no enlarged mediastinal or hilar nodes. There are no enlarged axillary nodes. There is a minimal right pleural effusion and a moderate-sized left pleural effusion. Lung windows show patchy areas of airspace disease in the left upper lobe superiorly as well as in the left perihilar region and left lower lobe in the perihilar region as well. There is some peribronchial thickening. There is some atelectatic change in the right base. There is a sclerotic lesion with loss of height of T7 which may represent a pathologic compression fracture. Consider followup with MRI as clinically warranted. There is an incidental small hiatal hernia. There is a benign-appearing cyst in the left kidney. IMPRESSION: No CT evidence of pulmonary emboli or acute aortic pathology. Moderate-sized left pleural effusion and minimal right pleural effusion. Patchy areas of airspace disease in the left lung are seen both in the upper lobe and lower lobe, most likely due to pneumonia. There is a sclerotic lesion at T7 with loss of height which may represent a pathologic compression fracture. Consider MRI followup as clinically warranted. Dictated by: Dictated on workstation # [id number] Dict: 05/10/231822 Trans: 05/10/231918 [id number] Interpreted by: ALBER PEREZ MD Electronically signed by: ALBER PEREZ MD 05/10/231918 Assessment/Plan Admission Diagnosis Sepsis due to Pneumonia and UTI Admission Status: Inpatient Order (span 2 midnights) Reason for Inpatient Admission: see below Assessment and Plan Sepsis due to Pneumonia and UTI Pleural effusion Debility Squamous cell carcinoma of lung Fever with tachycardia on arrival Imaging with pna UTI as well Contnue IV abx Await cultures PT/OT IRF eval Lasic given for pleural effusion- will follow Elevated BNP Cardiology consulted from ER Dr Rodríguez ordered an echo s/p Lasix will DC now Monitor I/O Replace K HTN Chronic anemia DM Continue homes as able Code Status: Pt elects to be a DNR and have her grandson be her DPOA should it be needed. She reports she has an advanced directive at home with this. (DNR- POA) TATIANA HADDAD MD May 11, 2023 08:08
[2023-05-11] MEDS ORDERED: NS IV 500 ML 500 ML IV PRN (08:15)
[2023-05-11] MEDS ORDERED: POTASSIUM CHLORIDE 10 MEQ TABLET PO ONE (08:30)
[2023-05-11] MEDS ORDERED: POTASSIUM CHLORIDE 20 MEQ TABLET PO ONE (08:30)
--- NOTE | 2023-05-11 09:18 | Physical Therapy Evaluation ---
PT Evaluation-General Medical Diagnosis Admission Date May 10, 2023 at 19:25 Medical Diagnosis: generalized weakness/CHF/pneumonia Onset Date: May 10, 2023 Therapy Diagnosis Therapy Diagnosis: generalized weakness/debility Precautions Precautions/Isolations: Fall Prevention, Standard Precautions Referral Physician: Boo Reason for Referral: Evaluation/Treatment Medical History Pertinent Medical History: Atrial Fib, CAD, DM, HTN, Hypothroidism Additional Medical History lung cancer Current History EMS secondary to generalized weakness Reviewed History: Yes Social History Home: Apartment Current Living Status: Alone Entry Into Home: Level Entry Prior Prior Level of Function SCALE: Activities may be completed with or without assistive devices. 9-Idaynbgbyh-vctfmdd completes the activity by him/herself with no assistance from a helper. 5-Set-up or Clean-up Assistance-helper sets up or cleans up; patient completes activity. [place] assists only prior to or following the activity. 4-Supervision or Touching Assistance-helper provides verbal cues and/or touching/steadying and/or contact guard assistance as patient completes activity. Assistance may be provided throughout the activity or intermittently. 3-Partial/Moderate Assistance-helper does LESS THAN HALF the effort. [place] lifts, holds or supports trunk or limbs, but provides less than half the effort. 2-Substantial/Maximal Assistance-helper does MORE THAN HALF the effort. [place] lifts or holds trunk or limbs and provides more than half the effort. 2-Fztaagckm-fujmsa does ALL the effort. Patient does none of the effort to complete the activity. Or, the assistance of 2 or more helpers is required for the patient to complete the activity. If activity was not attempted, code reason: 7-Patient Refused. 9-Not Applicable-not attempted and the patient did not perform the activity b efore the current illness, exacerbation or injury. 10-Not Attempted due to Environmental Limitations-(lack of equipment, weather restraints, etc.). 88-Not Attempted due to Medical Conditions or Safety Concerns. Bed Mobility: 6 Transfers (B,C,W/C): 6 Gait: 6 Stairs: 9 Indoor Mobility (Ambulation): Independent Stairs: Not Applicalbe Prior Devices Use: Walker PT Evaluation-Current Subjective Patient agrees to PT. Objective Patient Orientation: Normal For Age Attachments: Sainz Catheter ROM/Strength ROM Lower Extremities bilateral LE WFL Strength Lower Extremities 3/5 grossly bilateral LE all planes Integumentary/Posture Bowel Incontinence: No Bladder Incontinence: Sainz Cath Posture trunk flexed posture Neuromuscular (Tone, Coordination, Reflexes) grossly intact Sensory Vision: Wears Glasses Hearing: Functional Transfers Lying to Sitting/Side of Bed(Q: 4 Sit to Stand (QC): 4 Chair/Wet-vf-Rhsas Xfer(QC): 4 Gait Mode of Locomotion: Walk Anticipated Mode of Locomotion: Walk Walk 10 feet (QC): 4 Walk 50 ft with 2 Turns(QC): 4 Walk 150 ft (QC): 4 Distance: 150' Gait Assistive Device: FWW Comments/Gait Description extended UE's with FWW use/slow, shuffle gait sequence Balance Sitting Static: Normal Sitting Dynamic: Normal Standing Static: Normal Standing Dynamic: Normal Assessment/Needs Patient will benefit from short term skilled PT to address functional strength and mobility to improve current LOF to safely return at maximum LOF. Patient is currently SBA with mobility. Rehab Potential: Fair PT Tire Molder Goals Intermediate Goals PT Tire Molder Goals Time Frame: May 19, 2023 Roll Left & Right (QC): 6 Sit to Lying (QC): 6 Lying-Sitting on Side/Bed(QC): 6 Sit to Stand (QC): 6 Chair/Fny-ye-Kdszr Xfer(QC): 6 Toilet Transfer (QC): 6 Walk 10 feet (QC): 6 Walk 50ft with 2 Turns (QC): 6 Walk 150 ft (QC): 6 PT Plan Problem List Problem List: Activity Tolerance, Functional Strength, Safety, Balance, Gait, Transfer, Bed Mobility Treatment/Plan Treatment Plan: Continue Plan of Care Treatment Plan: Bed Mobility, Education, Functional Activity Becki, Functional Strength, Gait, Safety, Therapeutic Exercise, Transfers Treatment Duration: May 19, 2023 Frequency: 6 times per week Estimated Hrs Per Day: .25 hour per day Patient and/or Family Agrees t: Yes Time Time In: 840 Time Out: 854 DATE: May 11, 2023 Total Billed Treatment Time: 14 Total Billed Treatment 1 visit EVMod 14 min PATRH PRUETT PT May 11, 2023 09:18
--- NOTE | 2023-05-11 09:20 | Occupational Therapy Eval ---
OT Evaluation-General/PLF Medical Diagnosis Admission Date May 10, 2023 at 19:25 Medical Diagnosis: general weaknes Onset Date: May 10, 2023 Therapy Diagnosis Therapy Diagnosis: weakness Precautions Precautions/Isolations: Fall Prevention, Standard Precautions Weight Bear Status Weight Bearing Restriction: Weight Bearing/Tolerated Referral Referral Reason: Evaluation/Treatment Medical History Additional Medical History 88-year-old female with PMH of squamous cell carcinoma of the lung/DM2/HTN/chronic anemia/non-smoker, is brought in by EMS with complaints of generalized weakness. Patient lives at home alone and is normally able to take care of herself. Patient has been feeling unwell for the past few days, and today she was unable to stand or walk on her own without feeling extremely shaky and with generalized weakness. Patient complains of shortness of breath, mild i ntermittent cough, dysuria and polyuria as well. Denies fever and chills, abdominal pain, diarrhea, palpitations, headache, dizziness. No known sick contacts. Current History Patient reports increased weakness over 4 days, neighbors have been coming over to help Social History Home: Apartment Current Living Status: Alone Entry Into Home: Elevator ADL-Prior Level of Function SCALE: Activities may be completed with or without assistive devices. 8-Euvymmsjzw-rkqwuit completes the activity by him/herself with no assistance from a helper. 5-Set-up or Clean-up Assistance-helper sets up or cleans up; patient completes activity. [place] assists only prior to or following the activity. 4-Supervision or Touching Assistance-helper provides verbal cues and/or touching/steadying and/or contact guard assistance as patient completes activity. Assistance may be provided throughout the activity or intermittently. 3-Partial/Moderate Assistance-helper does LESS THAN HALF the effort. [place] lifts, holds or supports trunk or limbs, but provides less than half the effort. 2-Substantial/Maximal Assistance-helper does MORE THAN HALF the effort. [place] lifts or holds trunk or limbs and provides more than half the effort. 7-Isfchfpqv-iyopsw does ALL the effort. Patient does none of the effort to complete the activity. Or, the assistance of 2 or more helpers is required for the patient to complete the activity. If activity was not attempted, code reason: 7-Patient Refused. 9-Not Applicable-not attempted and the patient did not perform the activity before the current illness, exacerbation or injury. 10-Not Attempted due to Environmental Limitations-(lack of equipment, weather restraints, etc.). 88-Not Attempted due to Medical Conditions or Safety Concerns. Self Care: Independent Functional Cognition: Independent DME/Equipment: Bath Chair, Grab Bars Drive Self: No OT Current Status Subjective Agreeable to participate, however wants therapist to do tasks for her. Mental Status/Objective Patient Orientation: Person, Place, Time, Situation Attachments: Sainz Catheter, IV Current Glasses/Contacts: Yes Dentures/Partials: Yes Hand Dominance: Right Upper Extremity ROM BUE ROM WFLS Upper Extremity Coordination INTACT Upper Extremity Strength +3/5, difficulty pushing self up from bed to stand, forward flexion posture ADL-Treatment ADL-Current Declined soaks, wanted slippers, set up for facial/oral and hair grooming at bed side Eating (QC): 6 Oral Hygiene (QC): 5 Shower/Bathe Self (QC): 7 Upper Body Dressing (QC): 4 Lower Body Dressing (QC): 4 (verbal sequence instruction.) On/Off Footwear (QC): 5 Toileting Hygiene (QC): 5 Education OT Patient Education: Correct positioning, Modified ADL techniques, Purpose of tx/functional activities, Reviewed precautions, Rehab process, Safety issues, Transfer techniques, Use of adapted equipment Teaching Recipient: Patient Teaching Methods: Demonstration, Discussion Response to Teaching: Verbalize Understanding, Reinforcement Needed OT Sole Layer Hand Goals Mcfp Goals Eating (QC): 6 Oral Hygiene (QC): 6 Toileting Hygiene (QC): 6 Shower/Bathe Self (QC): 6 Upper Body Dressing (QC): 6 Lower Body Dressing (QC): 6 On/Off Footwear (QC): 6 1=Demonstrate adherence to instructed precautions during ADL tasks. 2=Patient will verbalize/demonstrate understanding of assistive devices/modifications for ADL. 3=Patient will improve strength/tolerance for activity to enable patient to perform ADL's. OT Education/Plan Problem List/Assessment Assessment: Decreased Activ Tolerance, Decreased Safety Aware, Impaired Coordination, Impaired Funct Balance, Impaired I ADL's Discharge Recommendations Plan/Recommendations: Continue POC Treatment Plan/Plan of Care Treatment,Training & Education: Yes Patient would benefit from OT for education, treatment and training to promote independence in ADL's, mobility, safety and/or upper extremity function for ADL's. Plan of Care: ADL Retraining, Functional Mobility, Group Exercise/Act as Ind, UE Funct Exercise/Act Treatment Duration: May 14, 2023 Frequency: 3 times per week (3-5 times per week) Estimated Hrs Per Day: .25 hour per day Agreement: Yes Rehab Potential: Guarded Time Start Time: 08:30 Stop Time: 08:54 DATE: May 11, 2023 Total Time Billed (hr/min): 24 Billed Treatment Time EVM, ADL 24 MIN RITA HOOK OT May 11, 2023 09:20
[2023-05-11] MEDS: MAGNESIUM 1 GM/100 ML IVPB 100 ML IV SCH (09:51)
--- NOTE | 2023-05-11 10:02 | Consultation-Cardiology ---
HPI-Cardiology Cardiology Consultation Date of Consultation 05/11/23 Date of Admission Time Seen by Provider: 09:58 Indication: Elevated BNP HPI 88-year-old lady with history of squamous cell carcinoma of the lung, hypertension, diabetes mellitus and chronic anemia. Has been having worsening weakness, generalized weakness and loss of energy. Continued to deteriorate and came into the emergency room for evaluation, she was diagnosed with pneumonia and UTI. She was noted to have elevated BNP. Denied any previous cardiac history, admits having history of heart murmur Home Medications & Allergies Allergies: Coded Allergies: No Known Drug Allergies (Unverified , 06/27/20) Home Medication List Reviewed: Yes NUT-Zdcxru-Qyviqn Hx Patient Social History Marital Status: single Employed/Student: retired Smoking Status: Former Smoker 2nd Hand Smoke Exposure: No Recent Hopitalizations: No Alcohol Use?: No Past Medical History Discussed below Family Medical History Significant Family History: No Pertinent Family Hx Review of Systems-General Review of Systems Constitutional: see HPI, malaise, weakness EENTM: no symptoms reported Respiratory: see HPI, cough, dyspnea on exertion, short of breath Cardiovascular: see HPI; No chest pain, No edema, No Hx of Intervention, No palpitations, No syncope, No vascular heart diseas, No other Gastrointestinal: no symptoms reported, see HPI Genitourinary: see HPI, dysuria Musculoskeletal: no symptoms reported Skin: no symptoms reported, see HPI Psychiatric/Neurological: No Symptoms Reported, See HPI Reviewed Test Results Reviewed Test Results Lab Laboratory Tests Test 05/10/23 14:40 05/10/23 14:50 05/10/23 15:13 05/10/23 16:20 Range/Units White Blood Count 10.5 4.3-11.0 10^3/uL Red Blood Count 2.49 L 3.80-5.11 10^6/uL Hemoglobin 7.9 L 11.5-16.0 g/dL Hematocrit 24 L 35-52 % Mean Corpuscular Volume 95 80-99 fL Mean Corpuscular Hemoglobin 32 25-34 pg Mean Corpuscular Hemoglobin Concent 33 32-36 g/dL Red Cell Distribution Width 25.7 H 10.0-14.5 % Platelet Count 188 130-400 10^3/uL Mean Platelet Volume 10.4 9.0-12.2 fL Immature Granulocyte % (Auto) 2 % Neutrophils (%) (Auto) 40 L 42-75 % Lymphocytes (%) (Auto) 17 12-44 % Monocytes (%) (Auto) 39 H 0-12 % Eosinophils (%) (Auto) 1 0-10 % Basophils (%) (Auto) 1 0-10 % Neutrophils # (Auto) 4.2 1.8-7.8 10^3/uL Lymphocytes # (Auto) 1.8 1.0-4.0 10^3/uL Monocytes # (Auto) 4.1 H 0.0-1.0 10^3/uL Eosinophils # (Auto) 0.1 0.0-0.3 10^3/uL Basophils # (Auto) 0.1 0.0-0.1 10^3/uL Immature Granulocyte # (Auto) 0.2 H 0.0-0.1 10^3/uL Neutrophils % (Manual) 21 % Lymphocytes % (Manual) 29 % Monocytes % (Manual) 18 % Eosinophils % (Manual) 1 % Basophils % (Manual) 0 % Metamyelocytes % 3 % Myelocytes % 1 % Band Neutrophils 27 % Nucleated Red Blood Cells 4 Percent Immature Platelet Fraction 6.1 0.0-7.6 % Polychromasia SLIGHT Hypochromasia SLIGHT Poikilocytosis SLIGHT Basophilic Stippling SLIGHT Anisocytosis MODERATE Macrocytosis SLIGHT Target Cells SLIGHT Helmet Cells SLIGHT Schistocytes SLIGHT Blood Morphology Comment SEE FOOTNOTE Prothrombin Time 14.5 12.2-14.7 SEC INR Comment 1.1 0.8-1.4 Activated Partial Thromboplast Time 30 24-35 SEC D-Dimer 0.94 H 0.00-0.49 UG/ML Sodium Level 133 L 135-145 MMOL/L Potassium Level 4.8 3.6-5.0 MMOL/L Chloride Level 98 98-107 MMOL/L Carbon Dioxide Level 22 21-32 MMOL/L Anion Gap 13 5-14 MMOL/L Blood Urea Nitrogen 20 H 7-18 MG/DL Creatinine 0.93 0.60-1.30 MG/DL Estimat Glomerular Filtration Rate 59 BUN/Creatinine Ratio 22 Glucose Level 165 H 70-105 MG/DL Calcium Level 9.1 8.5-10.1 MG/DL Corrected Calcium 9.3 8.5-10.1 MG/DL Magnesium Level 1.9 1.6-2.4 MG/DL Total Bilirubin 1.2 H 0.1-1.0 MG/DL Aspartate Amino Transf (AST/SGOT) 25 5-34 U/L Alanine Aminotransferase (ALT/SGPT) 16 0-55 U/L Alkaline Phosphatase 121 40-136 U/L Troponin I < 0.30 <0.30 NG/ML Pro-B-Type Natriuretic Peptide 2212.0 H <450.0 PG/ML Total Protein 8.1 6.4-8.2 GM/DL Albumin 3.7 3.2-4.5 GM/DL Influenza Type A (RT-PCR) Not Detected Not Detecte Influenza Type B (RT-PCR) Not Detected Not Detecte SARS-CoV-2 RNA (RT-PCR) Not Detected Not Detecte Lactic Acid Level 1.32 0.50-2.00 MMOL/L Urine Color YELLOW Urine Clarity SL CLOUDY Urine pH 6.0 5-9 Urine Specific [place] 1.010 L 1.016-1.022 Urine Protein 1+ H NEGATIVE Urine Glucose (UA) NEGATIVE NEGATIVE Urine Ketones NEGATIVE NEGATIVE Urine Nitrite NEGATIVE NEGATIVE Urine Bilirubin NEGATIVE NEGATIVE Urine Urobilinogen 0.2 < = 1.0 MG/DL Urine Leukocyte Esterase 1+ H NEGATIVE Urine RBC (Auto) TRACE-I H NEGATIVE Urine RBC 0-2 /HPF Urine WBC 25-50 H /HPF Urine Squamous Epithelial Cells 2-5 /HPF Urine Crystals NONE /LPF Urine Bacteria FEW H /HPF Urine Casts NONE /LPF Urine Mucus NEGATIVE /LPF Urine Culture Indicated YES Test 05/11/23 04:45 Range/Units White Blood Count 8.7 4.3-11.0 10^3/uL Red Blood Count 2.29 L 3.80-5.11 10^6/uL Hemoglobin 7.2 L 11.5-16.0 g/dL Hematocrit 22 L 35-52 % Mean Corpuscular Volume 97 80-99 fL Mean Corpuscular Hemoglobin 31 25-34 pg Mean Corpuscular Hemoglobin Concent 32 32-36 g/dL Red Cell Distribution Width 24.6 H 10.0-14.5 % Platelet Count 150 130-400 10^3/uL Mean Platelet Volume 10.0 9.0-12.2 fL Immature Granulocyte % (Auto) 2 % Neutrophils (%) (Auto) 37 L 42-75 % Lymphocytes (%) (Auto) 22 12-44 % Monocytes (%) (Auto) 39 H 0-12 % Eosinophils (%) (Auto) 1 0-10 % Basophils (%) (Auto) 0 0-10 % Neutrophils # (Auto) 3.2 1.8-7.8 10^3/uL Lymphocytes # (Auto) 1.9 1.0-4.0 10^3/uL Monocytes # (Auto) 3.4 H 0.0-1.0 10^3/uL Eosinophils # (Auto) 0.1 0.0-0.3 10^3/uL Basophils # (Auto) 0.0 0.0-0.1 10^3/uL Immature Granulocyte # (Auto) 0.1 0.0-0.1 10^3/uL Neutrophils % (Manual) 37 % Lymphocytes % (Manual) 25 % Monocytes % (Manual) 20 % Eosinophils % (Manual) 1 % Band Neutrophils 14 % Nucleated Red Blood Cells 3 Reactive Lymphocytes 3 % Hypochromasia SLIGHT Poikilocytosis SLIGHT Basophilic Stippling SLIGHT Anisocytosis MODERATE Sodium Level 136 135-145 MMOL/L Potassium Level 3.5 L 3.6-5.0 MMOL/L Chloride Level 102 98-107 MMOL/L Carbon Dioxide Level 26 21-32 MMOL/L Anion Gap 8 5-14 MMOL/L Blood Urea Nitrogen 21 H 7-18 MG/DL Creatinine 1.08 0.60-1.30 MG/DL Estimat Glomerular Filtration Rate 49 BUN/Creatinine Ratio 19 Glucose Level 110 H 70-105 MG/DL Calcium Level 9.0 8.5-10.1 MG/DL Magnesium Level 1.8 1.6-2.4 MG/DL B-Type Natriuretic Peptide 271.0 H <100.0 PG/ML Physical Exam Physical Exam Vital Signs Vital Signs - First Documented 05/10/23 15:20 Temp 38.0 Pulse 96 Resp 22 B/P (MAP) 48/ Pulse Ox 94 O2 Delivery Room Air O2 Flow Rate 141.00 Capillary Refill : Height, Weight, BMI Height: '" Weight: lbs. oz. kg; 30.84 BMI Method: General Appearance: Mild Distress HEENT: PERRL/EOMI, Normal ENT Inspection Neck: Full Range of Motion, Normal Inspection, Non Tender Respiratory: Chest Non Tender, Rales, Rhonci Cardiovascular: Regular Rate, Rhythm, Systolic Murmur, Other (Mild bilateral pitting lower extremity edema) Gastrointestinal: Normal Bowel Sounds, Non Tender, Soft Back: Normal Inspection Extremity: Normal Range of Motion Neurologic/Psychiatric: Alert, Oriented x3 Skin: Normal Color A/P-Cardiology Admission Diagnosis Generalized weakness Elevated BNP Pneumonia Hypertension Assessment/Plan Generalized weakness, loss of energy. Most probably secondary to pneumonia and UTI Continue antibiotic Elevated BNP, mild pedal edema. 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
[2023-05-11 12:28] VITALS: BP 136/61
[2023-05-11] MEDS ORDERED: ASPI-999 PO (17:36)
[2023-05-11] MEDS ORDERED: LIDO30CR TP (17:36)
[2023-05-11] MEDS ORDERED: LORA-404 PO (17:36)
[2023-05-11] MEDS ORDERED: AMLO5TAB4 PO (17:36)
[2023-05-11] MEDS ORDERED: LEVO100C4 PO (17:36)
[2023-05-11] MEDS ORDERED: ATOR80TA76 PO (17:36)
[2023-05-11] MEDS ORDERED: PSYL660P17 PO (17:36)
[2023-05-11] MEDS ORDERED: METO50TA7 PO (17:36)
[2023-05-11] MEDS ORDERED: LANS15CA5 PO (17:36)
[2023-05-11] MEDS ORDERED: ESTR42.52 VG ×2 (17:36→20:49)
[2023-05-11] MEDS ORDERED: [UNRECOGNIZED DRUG - CODE] MC (17:36)
[2023-05-11] MEDS ORDERED: GLIP5TAB13 PO (17:36)
[2023-05-11] MEDS ORDERED: VIT1CAPS44 PO (17:36)
[2023-05-11] MEDS ORDERED: TRM50T PO (17:36)
[2023-05-11] MEDS ORDERED: FERR325T24 PO (17:36)
[2023-05-11] MEDS ORDERED: CHOL125C6 PO (17:36)
[2023-05-11] MEDS ORDERED: SOLI10TA2 PO (17:36)
[2023-05-11] MEDS: AZITHROMYCIN 500 MG/NS 250 ML IVPB IV SCH ×2 (17:59)
[2023-05-11] MEDS: cefTRIAXone 1 GM/NS 50 ML IVPB IV SCH ×2 (18:00)
[2023-05-11] MEDS ORDERED: LORazepam 0.5 MG TABLET PO PRN (19:45)
[2023-05-11 20:30] VITALS: BP 129/67
[2023-05-12] VITALS (9 sets, daily range): BP systolic 116–131; BP diastolic 50–59
[2023-05-12 04:29] LABS: BASOPHILS % (AUTO) 1 % (0-10); EOSINOPHILS # (AUTO) 0.2 10^3/uL (0.0-0.3); EOSINOPHILS % (AUTO) 3 % (0-10); HEMATOCRIT 22 % (35-52); LYMPHOCYTES # (AUTO) 1.3 10^3/uL (1.0-4.0); LYMPHOCYTES % (AUTO) 17 % (12-44); MEAN CORPUSCULAR HEMOGLOBIN 31 pg (25-34); MEAN CORPUSCULAR HGB CONC 32 g/dL (32-36); MEAN CORPUSCULAR VOLUME 98 fL (80-99); MEAN PLATELET VOLUME 10.2 fL (9.0-12.2); MONOCYTES # (AUTO) 2.6 10^3/uL (0.0-1.0); MONOCYTES % (AUTO) 32 % (0-12); NEUTROPHILS # (AUTO) 3.7 10^3/uL (1.8-7.8); NEUTROPHILS % (AUTO) 47 % (42-75); PLATELET COUNT 163 10^3/uL (130-400)
[2023-05-12 04:41] LABS: CALCIUM 8.9 MG/DL (8.5-10.1)
[2023-05-12 04:45] LABS: CREATININE SERUM 0.96 MG/DL (0.60-1.30)
[2023-05-12 04:48] LABS: MAGNESIUM 2.2 MG/DL (1.6-2.4)
[2023-05-12] MEDS: POTASSIUM CL 10MEQ/50ML IVPB 50 ML IV SCH (05:59)
[2023-05-12] MEDS: CATHETER FLUSH 10 ML SYR IVP SCH ×3 (06:00→21:06)
[2023-05-12] MEDS: POTASSIUM BICARB 20 MEQ effervescent TABLET PO SCH (06:00)
[2023-05-12] MEDS: POTASSIUM CHLORIDE 20 MEQ TABLET PO SCH (06:00)
[2023-05-12] MEDS: MAGNESIUM 1 GM/100 ML IVPB 100 ML IV SCH (06:00)
[2023-05-12] MEDS: LEVOTHYROXINE 100 MCG TABLET PO SCH (06:39)
[2023-05-12] MEDS: TROSPIUM 20 MG (SANCTURA) TAB PO SCH ×2 (06:39→15:49)
[2023-05-12] MEDS: glipiZIDE 5 MG TABLET PO SCH (06:39)
[2023-05-12] MEDS: ACETAMINOPHEN 325 MG TABLET PO PRN (06:48)
[2023-05-12] MEDS ORDERED: NS IV 500 ML 500 ML IV SCH ×2 (09:00)
[2023-05-12] MEDS ORDERED: [UNRECOGNIZED DRUG - OTHER] PO SCH (09:00)
[2023-05-12] MEDS ORDERED: amLODIPine 5 MG TABLET PO SCH (09:00)
[2023-05-12] MEDS ORDERED: CHOLECALCIFEROL PO SCH (09:00)
[2023-05-12] MEDS ORDERED: NON-FORMULARY MEDICATION 1 EA EA (Solifenacin Succinate (Vesicare) 10 MG) PO SCH (09:00)
[2023-05-12] MEDS ORDERED: ESTRADIOL VAGINAL VG SCH (09:00)
--- NOTE | 2023-05-12 09:14 | Physical Therapy Daily Note ---
PT Daily Note-Current Subjective Pt. seated in chair, agrees to PT. She states her R hip is sore from laying on it in bed too long. No objective pain rating given. Pain Section J - Health Conditions 1. Rarely or not at all 2. Occasionally 3. Frequently 4. Almost constantly 8. Unable to answer Pain Effect on Sleep: 1 Pain Interference with Therapy: 1 Pain Interference w/Day-to-Day: 1 Mental Status Patient Orientation: Person, Place, Time, Situation Transfers SCALE: Activities may be completed with or without assistive devices. 8-Gwjtebgpnh-jawivxr completes the activity by him/herself with no assistance from a helper. 5-Set-up or Clean-up Assistance-helper sets up or cleans up; patient completes a ctivity. [place] assists only prior to or following the activity. 4-Supervision or Touching Assistance-helper provides verbal cues and/or touching/steadying and/or contact guard assistance as patient completes activity. Assistance may be provided throughout the activity or intermittently. 3-Partial/Moderate Assistance-helper does LESS THAN HALF the effort. [place] lifts, holds or supports trunk or limbs, but provides less than half the effort. 2-Substantial/Maximal Assistance-helper does MORE THAN HALF the effort. [place] lifts or holds trunk or limbs and provides more than half the effort. 1-Lqzjvetew-huncnh does ALL the effort. Patient does none of the effort to complete the activity. Or, the assistance of 2 or more helpers is required for the patient to complete the activity. If activity was not attempted, code reason: 7-Patient Refused. 9-Not Applicable-not attempted and the patient did not perform the activity before the current illness, exacerbation or injury. 10-Not Attempted due to Environmental Limitations-(lack of equipment, weather restraints, etc.). 88-Not Attempted due to Medical Conditions or Safety Concerns. Sit to Stand (QC): 4 Toilet Transfer (QC): 6 Weight Bearing Right Lower Extremity: Right Full Weight Bearing Left Lower Extremity: Left Full Weight Bearing Gait Training Does the Patient Walk?: Yes Distance: 150 ft Walk 150 ft (QC): 4 Gait Persons Needed: 1 Gait Assistive Device: FWW Treatments gait training Assessment Current Status: Good Progress Pt. is slow but steady with ambulation using FWW and feels she is nearing her baseline level with ambulation, although still feels generally weak from anemia. Pt. completed toileting (I) and was (I) with toilet transfer. Pt. returned to bedside chair with call light and all needs met. PT [facility] Goals [facility] Goals PT Rigging Foreman Goals Time Frame: May 19, 2023 Roll Left & Right (QC): 6 Sit to Lying (QC): 6 Lying-Sitting on Side/Bed(QC): 6 Sit to Stand (QC): 6 Chair/Nsr-pf-Kpurq Xfer(QC): 6 Toilet Transfer (QC): 6 Walk 10 feet (QC): 6 Walk 50ft with 2 Turns (QC): 6 Walk 150 ft (QC): 6 PT Plan Treatment/Plan Treatment Plan: Continue Plan of Care Treatment Plan: Bed Mobility, Education, Functional Activity Becki, Functional Strength, Gait, Safety, Therapeutic Exercise, Transfers Treatment Duration: May 19, 2023 Frequency: 6 times per week Estimated Hrs Per Day: .25 hour per day Patient and/or Family Agrees t: Yes Time Time In: 0830 Time Out: 0850 DATE: May 12, 2023 Total Billed Treatment Time: 20 Total Billed Treatment 1, GT 15' (FA 5') MALIA MOSES PT May 12, 2023 09:14
[2023-05-12] MEDS: PANTOPRAZOLE 40 MG TABLET PO SCH (09:15)
[2023-05-12] MEDS: ASPIRIN 81 MG CHEWABLE TABLET PO SCH (09:15)
[2023-05-12] MEDS: FERROUS SULFATE 325 MG (IRON) TABLET PO SCH (09:15)
[2023-05-12] MEDS: VITAMIN D3 25 MCG (1,000 UNITS) TABLET PO SCH (09:15)
--- NOTE | 2023-05-12 09:34 | Progress Note - Hospitalist ---
Subjective HPI/CC On Admission Date Seen by Provider: May 12, 2023 Patient is an 88-year-old female with a past medical history of squamous cell carcinoma of the lung, hypertension, diabetes who presented to the emergency department due to generalized weakness. She lives at home alone and is normally able to manage and keep up with her ADLs but over the past few days she states she was really struggling to do that. She is hardly able to stand on her own or walk without feeling as if she was going to fall. She ultimately summoned EMS to bring her to the emergency department for further evaluation. She was found to have pneumonia and UTI in the emergency department. CTA was done as well to rule out PE and she was found to have a moderate left pleural effusion and pneumonia. This morning she reports feeling little bit better but is still quite weak and overall just generally unwell. Subjective/Events-last exam Pt reports doing better today. Strength improving. Was walking back from toilet with PT when I entered room. Reports her strength is about 75% normal. Reports she thinks she would feel better with a blood transfusion and her oncologist normally transfuses her around 7. Focused Exam Lactate Level 05/10/23 15:13: Lactic Acid Level 1.32 Objective Exam Vital Signs Vital Signs Date Time Temp Pulse Resp B/P (MAP) Pulse Ox O2 Delivery O2 Flow Rate FiO2 05/12/23 08:10 37.5 81 116/52 (73) 97 Nasal Cannula 2.00 05/12/23 00:00 19 Capillary Refill : General Appearance: No Apparent Distress, WD/WN Respiratory: Lungs Clear, No Respiratory Distress Cardiovascular: Regular Rate, Rhythm, Systolic Murmur Neurologic/Psychiatric: Alert, Oriented x3 Results/Procedures Lab Laboratory Tests 05/12/23 04:10 Patient resulted labs reviewed. Imaging: Reviewed Imaging Report Assessment/Plan Assessment and Plan Assess & Plan/Chief Complaint Sepsis due to Pneumonia and UTI Pleural effusion Debility Squamous cell carcinoma of lung Imaging with pna UTI as well Contnue IV abx Await cultures- still pending PT/OT IRF eval Off oxygen this AM Elevated BNP Cardiology consulted from ER Echo pending Monitor I/O was -1340 yesterday K normal today HTN Chronic anemia DM Continue homes as able Will transfuse 1 unit pRBCs as Hgb 7 Code Status: Pt elects to be a DNR and have her grandson be her DPOA should it be needed. She reports she has an advanced directive at home with this. (DNR- POA) TATIANA HERNANDEZ MD May 12, 2023 09:34
[2023-05-12] MEDS: cefTRIAXone 1 GM/NS 50 ML IVPB IV SCH ×2 (15:49)
[2023-05-12] MEDS: AZITHROMYCIN 500 MG/NS 250 ML IVPB IV SCH ×2 (15:49)
--- NOTE | 2023-05-12 18:54 | Cardiology Progress Note ---
Subjective Date Seen by Provider: May 12, 2023 Time Seen by Provider: 10:00 Subjective/Events-last exam No acute issues overnight. Patient states that she continues to be weak but is significantly improved from presentation. Focused Exam Lactate Level 05/10/23 15:13: Lactic Acid Level 1.32 Objective-Cardiology Exam Last Set of Vital Signs Vital Signs 05/12/23 05/12/23 05/12/23 08:15 13:15 15:57 Temp 36.5 Pulse 66 Resp 14 B/P (MAP) 127/57 (80) Pulse Ox 95 O2 Delivery Room Air O2 Flow Rate 2.00 I&O Intake and Output 05/12/23 00:00 Intake Total 960 ml Output Total 2300 ml Balance -1340 ml Intake Oral 710 ml IV Total 250 ml Output Urine Total 2300 ml # Bowel Movements 1 Other physical findings Gen: NAD, resting comfortably; A+oX3 Neck: No bruits, no JVDLungs: Normal breath sounds, good air movement. no wheezing rales or rhonchi. CV: nl s1/s2; no gallops or rubs. Tachycardic, regular with intermittent pauses. sys murmur best at RSB .Abd: Soft nontender nondistended, no hepatosplenomegaly, positive bowel sounds.; Ext: 2+ radial and DP pulses; no c-c, wwp, 1+ BLE edema Results Lab Laboratory Tests 05/12/23 04:10 A/P-Cardiology Admission Diagnosis Generalized weakness Elevated BNP Pneumonia Hypertension Assessment/Plan 88F with hx of DM, HTN, anemia, lung cancer presents with SOB/cough and dysuria found to have anemia, PNA and UTI. ## Generalized weakness: likely 2/2 anemia, UTI and PNA - cont anti-infective treatment - transfuse for Hgb < 7 ## Elevated BNP: BNP 271; TTE with normal LV/RV function; noted to have Grade II diastolic dysfunction - no active signs of heart failure - cont current management mild pedal edema. No other signs of congestive heart failure, I will evaluate 2D echo # Systolic murmur: Echo confirms she has moderate ; - cont to monitor. - repeat TTE in 12 months for surveillance. ## Hypertension: SBP 110-=150s systolic - cont toprol xl for now. ## ANemia: Hgb downtrended from 7.9 to 7.0 - fu CBC in AM - transfuse for Hgb < 7.0 ## Diabetes mellitus - plan per hospitalist MARCO LEON MD May 12, 2023 18:54
[2023-05-12] MEDS: amLODIPine 5 MG TABLET PO SCH (21:06)
[2023-05-13] VITALS (9 sets, daily range): BP systolic 98–141; BP diastolic 38–67
[2023-05-13 05:36] LABS: POTASSIUM 4.2 MMOL/L (3.6-5.0)
[2023-05-13 05:37] LABS: CALCIUM 8.9 MG/DL (8.5-10.1)
[2023-05-13 05:42] LABS: CREATININE SERUM 0.87 MG/DL (0.60-1.30)
[2023-05-13 05:44] LABS: MAGNESIUM 2.1 MG/DL (1.6-2.4)
[2023-05-13 05:45] LABS: HEMATOCRIT 24 % (35-52); HEMOGLOBIN 8.2 g/dL (11.5-16.0); MEAN CORPUSCULAR HEMOGLOBIN 32 pg (25-34); MEAN CORPUSCULAR HGB CONC 34 g/dL (32-36); MEAN CORPUSCULAR VOLUME 94 fL (80-99); MEAN PLATELET VOLUME 9.7 fL (9.0-12.2); PLATELET COUNT 158 10^3/uL (130-400); WHITE BLOOD COUNT 5.2 10^3/uL (4.3-11.0)
[2023-05-13] MEDS: POTASSIUM CL 10MEQ/50ML IVPB 50 ML IV SCH (06:08)
[2023-05-13] MEDS: MAGNESIUM 1 GM/100 ML IVPB 100 ML IV SCH (06:08)
[2023-05-13] MEDS: POTASSIUM CHLORIDE 20 MEQ TABLET PO SCH (06:08)
[2023-05-13] MEDS: POTASSIUM BICARB 20 MEQ effervescent TABLET PO SCH (06:08)
--- NOTE | 2023-05-13 06:23 | Cardiology Progress Note ---
Subjective Date Seen by Provider: May 13, 2023 Time Seen by Provider: 06:00 Subjective/Events-last exam No acute issues overnight. Patient sleeping well. Notes improved energy. Hemoglobin up to 8.2. Transfused yesterday Focused Exam Lactate Level 05/10/23 15:13: Lactic Acid Level 1.32 Objective-Cardiology Exam Last Set of Vital Signs Vital Signs 05/12/23 05/12/23 05/13/23 05/13/23 13:15 18:55 00:25 04:00 Temp 36.5 Pulse 66 Resp 22 B/P (MAP) 98/38 (58) Pulse Ox 93 O2 Delivery Room Air O2 Flow Rate 0.00 I&O Intake and Output 05/13/23 00:00 Intake Total 1400 ml Output Total 700 ml Balance 700 ml Intake Oral 750 ml IV Total 650 ml Output Urine Total 700 ml # Voids 3 # Bowel Movements 3 Other physical findings Gen: NAD, resting comfortably; A+oX3 Neck: No bruits, no JVDLungs: Normal breath sounds, good air movement. no wheezing rales or rhonchi. CV: nl s1/s2; no gallops or rubs. Tachycardic, regular with intermittent pauses. sys murmur best at RSB .Abd: Soft nontender nondistended, no hepatosplenomegaly, positive bowel sounds.; Ext: 2+ radial and DP pulses; no c-c, wwp, trace BLE edema Results Lab Laboratory Tests 05/13/23 04:52 A/P-Cardiology Admission Diagnosis Generalized weakness Elevated BNP Pneumonia Hypertension Assessment/Plan 88F with hx of DM, HTN, anemia, lung cancer presents with SOB/cough and dysuria found to have anemia, PNA and UTI. ## Generalized weakness: likely 2/2 anemia, UTI and PNA - cont anti-infective treatment - transfuse for Hgb < 7; transfuse 1 unit of packed RBCs yesterday with hemoglobin up to 8.2 ## Elevated BNP: BNP 271; TTE with normal LV/RV function; noted to have Grade II diastolic dysfunction - no active signs of heart failure - cont current management - We will give Lasix 20 IV x1 today # Systolic murmur: Echo confirms she has moderate ; - cont to monitor. - repeat TTE in 12 months for surveillance. ## Hypertension: BP 90-130 systolic - cont toprol xl and Norvasc for now. ## ANemia: Hgb downtrended from 7.9 to 7.0; status post 1 unit of packed RBCs, hemoglobin now at 8.2 -Daily CBCs - transfuse for Hgb < 7.0 ## Diabetes mellitus - plan per hospitalist ##Disposition: We will sign off for now. Please call back with questions MARCO LEON MD May 13, 2023 6:23 am
[2023-05-13] MEDS: CATHETER FLUSH 10 ML SYR IVP SCH ×3 (07:01→20:11)
[2023-05-13] MEDS: FUROSEMIDE INJECTION 40 MG/4 ML VIAL IVP ONE ×2 (07:02→07:11)
[2023-05-13] MEDS: TROSPIUM 20 MG (SANCTURA) TAB PO SCH ×2 (07:02→16:03)
[2023-05-13] MEDS: glipiZIDE 5 MG TABLET PO SCH (07:02)
[2023-05-13] MEDS: LEVOTHYROXINE 100 MCG TABLET PO SCH (07:02)
[2023-05-13] MEDS: VITAMIN D3 25 MCG (1,000 UNITS) TABLET PO SCH (08:15)
[2023-05-13] MEDS: ASPIRIN 81 MG CHEWABLE TABLET PO SCH (08:15)
[2023-05-13] MEDS: PANTOPRAZOLE 40 MG TABLET PO SCH (08:15)
[2023-05-13] MEDS: FERROUS SULFATE 325 MG (IRON) TABLET PO SCH (08:15)
--- NOTE | 2023-05-13 11:41 | Progress Note - Hospitalist ---
Subjective HPI/CC On Admission Date Seen by Provider: May 13, 2023 Patient is an 88-year-old female with a past medical history of squamous cell carcinoma of the lung, hypertension, diabetes who presented to the emergency department due to generalized weakness. She lives at home alone and is normally able to manage and keep up with her ADLs but over the past few days she states she was really struggling to do that. She is hardly able to stand on her own or walk without feeling as if she was going to fall. She ultimately summoned EMS to bring her to the emergency department for further evaluation. She was found to have pneumonia and UTI in the emergency department. CTA was done as well to rule out PE and she was found to have a moderate left pleural effusion and pneumonia. This morning she reports feeling little bit better but is still quite weak and overall just generally unwell. Subjective/Events-last exam Pt reports feeling much better today. No complaints. Energy much better. Focused Exam Lactate Level 05/10/23 15:13: Lactic Acid Level 1.32 Objective Exam Vital Signs Vital Signs Date Time Temp Pulse Resp B/P (MAP) Pulse Ox O2 Delivery O2 Flow Rate FiO2 05/13/23 08:25 36.5 73 93 21 05/13/23 08:22 Room Air 0.00 05/13/23 08:12 20 116/48 (70) Capillary Refill : General Appearance: No Apparent Distress, WD/WN Respiratory: Lungs Clear, No Respiratory Distress Cardiovascular: Regular Rate, Rhythm, Systolic Murmur Gastrointestinal: Normal Bowel Sounds, Soft Neurologic/Psychiatric: Alert, Oriented x3 Results/Procedures Lab Laboratory Tests 05/13/23 04:52 Patient resulted labs reviewed. Imaging: Reviewed Imaging Report Assessment/Plan Assessment and Plan Assess & Plan/Chief Complaint Sepsis due to Pneumonia and UTI Pleural effusion Debility Squamous cell carcinoma of lung Imaging with pna UTI but culture contaminated Contnue IV abx PT/OT IRF eval dCHF acutely decompensated- POA Aortic Stenosis Cardiology consulted from ER Echo with moderate , preserved EF and grade 2 diastolic dysfunction Lasix ordered today by cardiology already HTN Chronic anemia DM Continue homes as able Hgb up to 8.2 s/p 1 unit pRBCs TATIANA HERNANDEZ MD May 13, 2023 11:41
[2023-05-13] MEDS: ENOXAPARIN 40 MG/0.4 ML SYRINGE SQ SCH (13:15)
[2023-05-13] MEDS: cefTRIAXone 1 GM/NS 50 ML IVPB IV SCH ×2 (15:29)
[2023-05-13] MEDS: AZITHROMYCIN 500 MG/NS 250 ML IVPB IV SCH ×2 (15:58)
[2023-05-13] MEDS: ACETAMINOPHEN 325 MG TABLET PO PRN (20:11)
[2023-05-13] MEDS: amLODIPine 5 MG TABLET PO SCH (20:11)
[2023-05-14] MEDS: ACETAMINOPHEN 325 MG TABLET PO PRN (02:48)
[2023-05-14 03:23] VITALS: BP 106/60
[2023-05-14] MEDS: TROSPIUM 20 MG (SANCTURA) TAB PO SCH (05:59)
[2023-05-14] MEDS: glipiZIDE 5 MG TABLET PO SCH (05:59)
[2023-05-14] MEDS: CATHETER FLUSH 10 ML SYR IVP SCH ×2 (05:59→14:03)
[2023-05-14] MEDS: LEVOTHYROXINE 100 MCG TABLET PO SCH (05:59)
[2023-05-14] MEDS: POTASSIUM BICARB 20 MEQ effervescent TABLET PO SCH (06:05)
[2023-05-14] MEDS: POTASSIUM CHLORIDE 20 MEQ TABLET PO SCH (06:05)
[2023-05-14] MEDS: POTASSIUM CL 10MEQ/50ML IVPB 50 ML IV SCH (06:05)
[2023-05-14 06:09] LABS: CREATININE SERUM 0.92 MG/DL (0.60-1.30)
[2023-05-14] MEDS: MAGNESIUM 1 GM/100 ML IVPB 100 ML IV SCH (06:15)
[2023-05-14] MEDS: FERROUS SULFATE 325 MG (IRON) TABLET PO SCH (08:16)
[2023-05-14] MEDS: VITAMIN D3 25 MCG (1,000 UNITS) TABLET PO SCH (08:16)
[2023-05-14] MEDS: PANTOPRAZOLE 40 MG TABLET PO SCH (08:16)
[2023-05-14] MEDS: ASPIRIN 81 MG CHEWABLE TABLET PO SCH (08:16)
[2023-05-14 08:53] VITALS: BP 129/66
--- NOTE | 2023-05-14 08:55 | Cardiology Progress Note ---
Subjective Date Seen by Provider: May 14, 2023 Time Seen by Provider: 09:05 Subjective/Events-last exam Patient was seen at bedside, she is sitting comfortably, feeling better Had mild chills last night Objective-Cardiology Exam Last Set of Vital Signs Vital Signs 05/13/23 05/14/23 05/14/23 08:25 03:23 08:53 Temp 36.2 Pulse 67 Resp 20 B/P (MAP) 129/66 (87) Pulse Ox 95 O2 Delivery Room Air O2 Flow Rate 0.00 0.00 FiO2 21 I&O Intake and Output 05/14/23 00:00 Intake Total 1380 ml Balance 1380 ml Intake Oral 1080 ml IV Total 300 ml # Voids 4 General: Alert, Oriented X3, Cooperative HEENT: Atraumatic, PERRLA Neck: Supple, No JVD, No Thyromegaly Lungs: Clear to Auscultation, Normal Air Movement Heart: Regular Rate, Normal S1, Normal S2, No Murmurs Abdomen: Normal Bowel Sounds, Soft, No Tenderness, No Hepatosplenomegaly, No Masses Extremities: No Clubbing, No Cyanosis, No Edema, Normal Pulses, No Tenderness/Swelling Skin: No Rashes, No Breakdown, No Significant Lesion Neuro: Normal Gait, Normal Speech, Strength at 5/5 X4 Ext, Normal Tone, Sensation Intact Psych/Mental Status: Mental Status NL, Mood NL Results Lab Laboratory Tests 05/14/23 05:34 A/P-Cardiology Admission Diagnosis Generalized weakness Elevated BNP Pneumonia Hypertension Assessment/Plan Sepsis d/t pneumonia and UTI, improving. Management per hospitalist. Squamous cell CA of lung, Managed by primary care physician CHF, elevated BNP, 2D Echo done showing normal LV/RV function, grade 2 diastolic dysfunction. Diurese as tolerated. Moderate Aortic stenosis, continue to monitor, asymptomatic Generalized weakness 2/2 chronic anemia, UTI and PNA Hypertension, currenly borderline hypotensive. I will d/c Norvasc, continue to monitor Chronic anemia, monitor H/H, management per medical services DM Supervisory-Addendum Brief Supervisory Addendum Participated in pt care: history, MDM, physical Personally performed: exam, history, MDM Care discussed with: SHAHRAM Results interpretation: Verified all documentation Notes: Patient was seen and evaluated with Werner, examination performed, management plan was discussed, agree with the current scribed note, I made few changes to the note using Italic font Patient was seen at bedside, sitting comfortably no new complain Continue with current medication, stop amlodipine Monitor blood pressure WERNRE HATCH PA-C May 14, 2023 08:55 MAMADOU HERMAN MD May 14, 2023 09:07
[2023-05-14] MEDS ORDERED: ACET-2267 PO (09:37)
[2023-05-14] MEDS ORDERED: CHOL10007 PO (09:37)
--- NOTE | 2023-05-14 10:44 | Physical Therapy Daily Note ---
PT Daily Note-Current Subjective Patient reports she just got a shower. Agrees to PT. Pain Section J - Health Conditions 1. Rarely or not at all 2. Occasionally 3. Frequently 4. Almost constantly 8. Unable to answer Pain Effect on Sleep: 1 Pain Interference with Therapy: 1 Pain Interference w/Day-to-Day: 1 Transfers SCALE: Activities may be completed with or without assistive devices. 0-Geedndlqjp-lxxklcl completes the activity by him/herself with no assistance from a helper. 5-Set-up or Clean-up Assistance-helper sets up or cleans up; patient completes activity. Coram assists only prior to or following the activity. 4-Supervision or Touching Assistance-helper provides verbal cues and/or touching/steadying and/or contact guard assistance as patient completes activity. Assistance may be provided throughout the activity or intermittently. 3-Partial/Moderate Assistance-helper does LESS THAN HALF the effort. Coram lifts, holds or supports trunk or limbs, but provides less than half the effort. 2-Substantial/Maximal Assistance-helper does MORE THAN HALF the effort. Coram lifts or holds trunk or limbs and provides more than half the effort. 7-Qwxanynmw-uxttmi does ALL the effort. Patient does none of the effort to complete the activity. Or, the assistance of 2 or more helpers is required for the patient to complete the activity. If activity was not attempted, code reason: 7-Patient Refused. 9-Not Applicable-not attempted and the patient did not perform the activity be fore the current illness, exacerbation or injury. 10-Not Attempted due to Environmental Limitations-(lack of equipment, weather restraints, etc.). 88-Not Attempted due to Medical Conditions or Safety Concerns. Sit to Stand (QC): 6 Weight Bearing Right Lower Extremity: Right Full Weight Bearing Left Lower Extremity: Left Full Weight Bearing Gait Training Distance: 225' Walk 10 feet (QC): 6 Walk 50 ft with 2 Turns(QC): 6 Walk 150 ft (QC): 6 Gait Assistive Device: FWW slow, steady, functional gait sequence Assessment Patient is currently at independent LOF with all gross motor skills safely and does not require continued skilled PT intervention at this time. PT to dismiss patient from services. PT Shelter Goals Shelter Goals PT Shelter Goals Time Frame: May 19, 2023 Roll Left & Right (QC): 6 Sit to Lying (QC): 6 Lying-Sitting on Side/Bed(QC): 6 Sit to Stand (QC): 6 Chair/Ity-qy-Wtcik Xfer(QC): 6 Toilet Transfer (QC): 6 Walk 10 feet (QC): 6 Walk 50ft with 2 Turns (QC): 6 Walk 150 ft (QC): 6 PT Plan Treatment/Plan Treatment Plan: Discontinue PT, goals met Treatment Plan: Bed Mobility, Education, Functional Activity Becki, Functional Strength, Gait, Safety, Therapeutic Exercise, Transfers Treatment Duration: May 19, 2023 Frequency: 6 times per week Estimated Hrs Per Day: .25 hour per day Patient and/or Family Agrees t: Yes Time Time In: 1006 Time Out: 1015 DATE: May 14, 2023 Total Billed Treatment Time: 9 Total Billed Treatment 1 visit FA 9 min PARTH PRUETT PT May 14, 2023 10:44
[2023-05-14] MEDS: ENOXAPARIN 40 MG/0.4 ML SYRINGE SQ SCH (11:13)
[2023-05-14] MEDS ORDERED: CEFD300C3 PO (11:44)
[2023-05-14 12:15] VITALS: BP 120/68
--- NOTE | 2023-05-14 14:00 | D/C HH Face to Face Order ---
D/C Face to Face Orders Instructions for Patient Via [facility], Patient Instructions/FollowUp: see instructions Physician to follow Patient: Ben Discharge Diet for Home: No Restrictions Patient Data-Allergies,Ht & Wt Patient Allergies: Coded Allergies: No Known Drug Allergies (Unverified , 06/27/20) Home Health Need/Face to Face Date of Face to Face: May 14, 2023 Clinical Findings: Generalized weakness and fatigue, Instability, Muscle weakness, Unsteady gait I have seen Pt [id number]: Yes Discharged To: Home Diagnosis/Conditions: Pneumonia UTI CHF Debility Problems/Diagnosis/Condition: (1) Left upper lobe pneumonia (2) Acute cystitis with hematuria (3) Acute exacerbation of CHF (congestive heart failure) (4) Generalized weakness Patient is Homebound due to: [place] fall risk due to instabilty, Muscle weakness Homebound Status Due to the above stated illness, injury or surgical procedure (medical condition or diagnosis) and associated clinical findings, the patient is homebound because of his/her inability to leave home except with aid of a supportive device and/or person AND leaving the home requires a considerable and taxing effort or is medically contraindicated. Pt req the following assistanc: Aid of another person, Walker Home Health Nursing Orders Home Health Services Order: Nursing Services, Assembler [employer] Frame-Evaluate & T reat, Physical Therapy-Evaluate & Treat Home Health Infusion Therapy Line Start Date: May 12, 2023 Therapy Orders Therapy Orders: OT (must have SN or PT order), Physical Therapy Therapy Specific Orders: Eval assistive deivces, Teach enviro modifications/safety, Gait training, Increase strength/endurance Certify Stmt I certify that this patient is under my care and that I, a nurse practitioner or a physician; a bookkeeping assistant working with me, had a face to face encounter that - meets the physician face to face encounter requirements with this patient as dated. RAJINDER HILLIARD MD May 14, 2023 14:00
[2023-05-14 14:07] VITALS: BP 120/68
[2023-05-14] MEDS ORDERED: AZITHROMYCIN 250 MG TABLET PO SCH (16:00)
--- NOTE | 2023-05-15 16:43 | Discharge Summary ---
Discharge Summary Hospital Course Problems/Dx: (1) Sepsis due to pneumonia Status: Acute (2) Acute cystitis with hematuria Status: Acute (3) Acute exacerbation of CHF (congestive heart failure) Status: Acute (4) SCC (squamous cell carcinoma of lung) Status: Chronic (5) HTN (hypertension) Status: Chronic (6) T2DM (type 2 diabetes mellitus) Status: Chronic (7) Anemia Status: Chronic Hospital Course Date of Admission: May 11, 2023 at 10:50 Admission Diagnosis : Sepsis due to pneumonia and UTI Family Physician/Provider: Skinny Ordaz Physician Date of Discharge: 05/14/23 Discharge Diagnosis: Sepsis due to pneumonia and UTI Hospital Course: Yuliya Villa is an 88 year old female with PMH SCC of the lung, HTN, T2DM, anemia, who was admitted with sepsis due to pneumonia and UTI. She was treated with IV antibiotics and improved. She also had acute on chronic HFpEF which improved with diuretics. She was debilitated and worked with PT/OT. She was discharged home in stable condition with home health care. She should follow up with her PCP/oncologist in about a week. Labs and Pending Lab Test: Microbiology 05/10/23 Urine Culture - Final, Complete >=3 Gram Positive Isolates No Susceptibility Performed 05/10/23 Blood Culture - Preliminary, Resulted Home Meds Active Cefdinir 300 Mg Capsule 300 Mg PO BID 4 Days Reported Tylenol Extra Strength (Acetaminophen) 500 Mg Tablet 1,000 Mg PO Q8H PRN TAKES 2 (500MG) TABS Vitamin D3 (Cholecalciferol (Vitamin D3)) 25 Mcg (1000 Unit) Capsule 75 Mcg PO TAKES 3 (25MCG) TABS Tramadol HCl 50 Mg Tablet 50 Mg PO Q6H PRN TAKE 1 TABLET (50MG) BY MOUTH EVERY 6 HOURS NEEDED FOR PAIN. MAX DAILY DOSE:200MG Vesicare (Solifenacin Succinate) 10 Mg Tablet 10 Mg PO HS Preservision Areds 2 Softgel (Vit C/E/Zn/Coppr/Lutein/Zeaxan) 250MG-90MG Capsule 1 Each PO DAILY Metoprolol Succinate 50 Mg Tab.er.24h 50 Mg PO DAILY Levothyroxine (Levothyroxine Sodium) 100 Mcg Capsule 100 Mcg PO HS Lansoprazole 15 Mg Capsule.dr 30 Mg PO DAILY TAKES 2 (15MG) CAPS Glipizide 5 Mg Tablet 5 Mg PO BID Ferosul (Ferrous Sulfate) 325 Mg (65 Mg Iron) Tablet 325 Mg PO DAILY Atorvastatin Calcium 80 Mg Tablet 80 Mg PO DAILY Aspirin 81 Mg Tab.chew 81 Mg PO HS Norvasc (Amlodipine Besylate) 5 Mg Tablet 5 Mg PO HS Assessment/Pt Instructions see instructions Discharge Planning: >30 minutes discharge planning Discharge Instructions Discharge Diet: No Restrictions Activity as Tolerated: Yes Discharge Physical Examination Vital Signs Vital Signs Date Time Temp Pulse Resp B/P (MAP) Pulse Ox O2 Delivery O2 Flow Rate FiO2 05/14/23 14:07 36.6 64 20 120/68 93 Room Air 0.00 05/13/23 08:25 21 General Appearance: No Apparent Distress, WD/WN Respiratory: Lungs Clear, No Respiratory Distress Cardiovascular: Regular Rate, Rhythm, No Murmur Gastrointestinal: Normal Bowel Sounds, Soft Extremity: Normal Inspection, No Pedal Edema Skin: Normal Color, Warm/Dry Neurologic/Psychiatric: Alert, Normal Mood/Affect Allergies: Coded Allergies: No Known Drug Allergies (Unverified , 06/27/20) Discharge Summary Date of Admission May 11, 2023 at 10:50 Date of Discharge May 14, 2023 at 14:43 Discharge Date: May 14, 2023 Discharge Time: 14:43 Admission Diagnosis Sepsis due to Pneumonia and UTI Discharge Diagnosis (1) Sepsis due to pneumonia Status: Acute (2) Acute cystitis with hematuria Status: Acute (3) Acute exacerbation of CHF (congestive heart failure) Status: Acute (4) HTN (hypertension) Status: Chronic (5) T2DM (type 2 diabetes mellitus) Status: Chronic (6) SCC (squamous cell carcinoma of lung) Status: Chronic (7) Anemia Status: Chronic RAJINDER HILLIARD MD May 15, 2023 16:43
== END 2023-05-14 14:43 | disposition home health service (06) | DRG 871 ==
LOC: ER FS 14:40 → EDUNIT# 14:40 → CSD 19:25 → OBSVTOIN 05-11 10:50 → 4TH 05-13 11:42
PROVIDERS: ADMIT Family Medicine; ATTEND Internal Medicine
DX: A41.9 Sepsis, unspecified organism (principal); I50.33 Acute on chronic diastolic (congestive) heart failure; J18.9 Pneumonia, unspecified organism; N30.01 Acute cystitis with hematuria; C34.90 Malignant neoplasm of unspecified part of unspecified bronchus or lung; J90 Pleural effusion, not elsewhere classified; Z66 Do not resuscitate; I11.0 Hypertensive heart disease with heart failure; E11.9 Type 2 diabetes mellitus without complications; D64.9 Anemia, unspecified; I35.0 Nonrheumatic aortic (valve) stenosis; Z20.822 Contact with and (suspected) exposure to COVID-19; E78.00 Pure hypercholesterolemia, unspecified; I48.91 Unspecified atrial fibrillation; K21.9 Gastro-esophageal reflux disease without esophagitis; E03.9 Hypothyroidism, unspecified; Z79.84 Long term (current) use of oral hypoglycemic drugs; Z87.891 Personal history of nicotine dependence; Z79.890 Hormone replacement therapy
CPT/HCPCS: 36415; 71045; 71275; 80048; 80053; 81000; 83605; 83735; 83880; 84484; 85007; 85025; 85027; 85379; 85610; 85730; 86850; 86900; 86901; 86920; 87040; 87088; 87636; 93005; 93306; 94664; 94760; 96365; 96375; Q9967